=== PATIENT | male | born 1955 | race Caucasian/White ===

== ENCOUNTER 2023-04-08 14:14 | Observation (INO) | payer MEDICARE, SELFPAY ==
--- NOTE | ~2023-04-08 | CT_ITS ---
EXAMINATION: CT hip RT wo con DATE: 04/08/2023 20:05 INDICATION: Right hip pain TECHNIQUE: Computed tomography (CT) of the right hip was performed without intravenous contrast. The dose-length product (DLP) was 201.02 mGy-cm. Automated exposure control and iterative reconstruction technique were employed. COMPARISON: None FINDINGS: Bone alignment is normal. There is no fracture. 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 Ur inary bladder is moderately distended. There are calcifications of the prostate. There is atrophy of the gluteus minimus muscle IMPRESSION: 1. No CT correlate for the patient's symptoms. 2. Atrophy of the gluteus minimus muscle. Reviewed, dictated and finalized at location F.
--- NOTE | ~2023-04-08 | XR_ITS ---
XR lumbar spine 2-3V DATE: 04/08/2023 15:32 INDICATION: Back pain for one week. No injury. TECHNIQUE: AP, lateral, coned lateral lumbosacral views COMPARISON: None FINDINGS: No fracture or bone destruction or spondylolisthesis is evident. There is severe degenerative disc disease at L5-S1 and mild degenerative disc disease at the remainin g lumbar interspaces. The sacroiliac joints are intact. IMPRESSION: Multilevel degenerative disc disease, severe at L5-S1 Reviewed, dictated and finalized at location []
--- NOTE | ~2023-04-08 | XR_ITS ---
XR hip RT 2V w AP pelvis DATE: 04/08/2023 15:33 INDICATION: Right hip pain for one week TECHNIQUE: AP pelvis. AP and lateral views of the right hip COMPARISON: None FINDINGS: No pelvic fracture or bone destruction. The pubic symphysis and sacroiliac joints are intac t. No fracture, dislocation, avascular necrosis or bone destruction of the right hip is detected. IMPRESSION: No significant abnormality of the pelvis or right hip Reviewed, dictated and finalized at location []
[2023-04-08 14:17] VITALS: BP 136/74; PULSE 62; RESP 18; TEMP 36.9; O2SAT 100
--- NOTE | 2023-04-08 15:19 | ED.LOWEXIN ---
HPI - Extremity Injury (Lower) General Chief Complaint: Extremity Injury, Lower Stated Complaint: R hip pain Time Seen by Provider: 04/08/23 14:23 Source: patient, family and EMS Mode of arrival: EMS Limitations: no limitations History of Present Illness HPI Narrative: PATIENT IS 67 YEARS OLD WHITE MALE PRESENTS TO THE ED WITH SEVERE PAIN AT THE RIGHT HIP LATERALLY STARTED 1 WEEK AGO AND GRADUALLY GETTING WORSE. TODAY WAS NOT ABLE TO STAND UP AND CALL 911. HISTORY OF [facility] MUSCULAR DYSTROPHY, PATIENT IS TELLING ME THAT HE HAD 1 WEEK VACATION WITH A LOT OF WALKING AND STANDING. HE DENIES ANY FEVER, CHILLS, NAUSEA, VOMITING, TRAUMA. Related Data Allergies Allergy/AdvReac Type Severity Reaction Status Date / Time No Known Allergies Allergy Verified 04/08/23 14:21 Review of Systems Review of Systems: All systems reviewed & are unremarkable except as noted in HPI and below Exam Narrative: GENERAL APPEARANCE: WELL-DEVELOPED, WELL-NOURISHED SKIN: NORMAL COLOR HEAD: NORMOCEPHALIC, NONTRAUMATIC EYES: CLEAR CONJUNCTIVA ENT: OROPHARYNX NORMAL, EARS NORMAL, NOSE NORMAL NECK: SUPPLE, NONTENDER CHEST AND RESPIRATORY: AIRWAY PATENT, NO RESPIRATORY DISTRESS, NO ACCESSORY MUSCLE USE HEART: REGULAR RATE/RHYTHM ABDOMEN: SOFT, NONTENDER, NO ORGANOMEGALY, QUIET BOWEL SOUNDS VASCULAR: NORMAL PERIPHERAL PULSES, NORMAL CAPILLARY REFILL. MUSCULOSKELETAL: SLIGHT LIMITED RANGE OF MOTION OF THE RIGHT HIP, SLIGHT TENDERNESS LATERALLY, NO BRUISES, NO SWELLING, NO RASHES, NO WARMTH, NO DEFORMITY. NO GROIN LYMPHADENOPATHY OR MASS NEUROLOGIC: ALERT AND ORIENTED ?3, ZINC PLATER IS NORMAL TESTED, NO GROSS MOTOR DEFICIT Course Reevaluation(s) Reevaluation #1: Patient received 25 mg of Dilaudid IV, 4 mg of Zofran IV and 30 mg of Toradol IV with significant improvement. At the time of discharge patient stated at the side of bed and was not able to walk because of pain. Patient reports that he cannot go home like this and would like to stay overnight for pain management. Date: 04/08/23 Time: 19:55 Consultations Consultation #1: Dr. Gregg Admit to hospitalist Date: 04/08/23 Time: 19:57 Vital Signs Vital signs: Vital Signs Temperature 36.9 C 04/08/23 14:17 Pulse Rate 62 04/08/23 14:17 Respiratory Rate 18 04/08/23 14:17 Blood Pressure 136/74 04/08/23 14:17 Pulse Oximetry 100 04/08/23 14:17 Oxygen Delivery Room Air 04/08/23 14:17 Temperature 36.9 C 04/08/23 14:17 Pulse Rate 62 04/08/23 14:17 Respiratory Rate 18 04/08/23 14:17 Blood Pressure 136/74 04/08/23 14:17 Pulse Oximetry 100 04/08/23 14:17 Oxygen Delivery Room Air 04/08/23 14:17 MDM - Extremity Injury (Lower) MDM Narrative Medical decision making narrative: Patient have history of facioscapulohumeral muscular dystrophy. Went to vacation was quite a bit of walking and standing, been hurting at the right hip for the last few days it got worse today today was not able to get up and stand without hotel assistant general manager. He denies any fever or trauma. Physical examination was remarkable for inability to stand up and put weight on the right lower extremity because of the right hip pain laterally. No bruises, no swelling, no rash. Differential diagnosis include musculoskeletal pain, strain, sprain, occult fracture. X-ray of the right hip and pelvis showed no significant abnormalities x-ray of the lumbar spine showed degenerative disc disease severe at L5-S1 Blood work-up showed normal CBC, normal CMP. Patient received 0.5 mg of Dilaudid IV, 4 mg of Zofran IV, 30 mg of Toradol IV with quite a bit of improvement but was not able to stand up at the time of discharge because of the pain.
[2023-04-08] MEDS: HYDROmorphone HCL INJ (*CRX) 1 MG/ML SYR 0.5 MG IV PUSH (15:54)
[2023-04-08] MEDS: ONDANSETRON INJ 4 MG/2 ML VIAL IV PUSH (15:55)
[2023-04-08 16:04] LABS: Basophils Absolute Auto 0.1 K/mm3 (0.0-0.1); Basophils Percent Auto 0.8 % (0.2-1.2); Eosinophils Absolute Auto 0.1 K/mm3 (0-0.3); Eosinophils Percent Auto 0.8 % (0-4.4); Hematocrit 45.6 % (42.0-52.0); Hemoglobin 15.2 g/dL (14.0-18.0); Immature Granulocyte Absolute 0.05 K/mm3 (0.00-0.031); Immature Granulocyte Percent A 0.6 % (0-0.5); Lymphocytes Absolute Auto 1.72 K/mm3 (0.9-3.2); Mean Corpuscular HGB Conc 33.3 g/dl (32-36); Mean Corpuscular Hemoglobin 31.9 pg (26-34); Mean Corpuscular Volume 95.6 fl (80-100); Monocytes Percent Auto 11.9 % (2.6-8.5); Neutrophils Absolute Auto 5.7 K/mm3 (1.3-6.7); Neutrophils Percent Auto 65.9 % (45.5-73.1); Platelet Count Result 199 k/mm3 (150-375); Red Blood Count 4.77 M/mm3 (4.6-6.20); Red Cell Distribution Width 13.2 % (11.5-14.5); White Blood Count 8.6 K/mm3 (4.5-10.0)
[2023-04-08 16:18] LABS: Alanine Aminotransferase 31 U/L (6-50); Albumin Level 4.3 g/dL (3.5-5.1); Alkaline Phosphatase 54 U/L (38-126); Anion Gap 8 mmol/L (8-16); Aspartate Amino Transferase 43 U/L (17-59); Bilirubin,Total 1.1 mg/dL (0.2-1.3); Blood Urea Nitrogen 18 mg/dL (9-20); Calcium 9.1 mg/dL (8.4-10.2); Carbon Dioxide 27 mmol/L (22-30); Chloride 100 mmol/L (98-107); Estimated CRCL calculation 122 ml/min; Estimated Glomerular Filt Rate > 60; Glucose 93 mg/dL (65-110); Potassium 3.6 mmol/L (3.4-5.0); Sodium 135 mmol/L (137-145)
[2023-04-08] MEDS: KETOROLAC 30 MG/ML VIAL (*BKC) IV PUSH (16:19)
[2023-04-08 22:13] VITALS: BP 131/68; PULSE 82; RESP 18; O2SAT 99
[2023-04-08 22:47] VITALS: BMI 22.2
[2023-04-08 22:48] VITALS: BP 122/72; PULSE 75; RESP 20; TEMP 36.4; O2SAT 93
[2023-04-09] MEDS: HYDROcodone/acetaminophen (*CRX) 5-325 MG TABLET 1 TAB PO ×3 (04:32→13:35)
[2023-04-09] MEDS: LEVOTHYROXINE SODIUM 88 MCG TABLET PO (05:52)
[2023-04-09 06:00] VITALS: BP 110/65; PULSE 55; RESP 20; TEMP 36.4; O2SAT 98
--- NOTE | 2023-04-09 08:15 | PCPTNOTE ---
Patient has ortho consult physical therapy sill see patient sometime after ortho consult.
[2023-04-09] MEDS: hydroCHLOROthiazide 12.5 MG CAPSULE PO (08:23)
[2023-04-09 10:07] VITALS: O2SAT 98
--- NOTE | 2023-04-09 10:30 | PM.SD2 ---
Same Day Admit/Disch: HPI History of Present Illness Chief complaint: right hip pain, trochanteric bursitis, muscular dy Narrative: Christiano Slaughter is a 67 year old male [facility] Social History Social History Smoking status: Former smoker Tobacco type: cigars Second hand tobacco smoke exposure: No Alcohol intake: current Drinks per week: 12 Substance use: never Lack of Transportation: No Lack of Food: Never True Current Housing: I Have Housing Concerned About Future Housing: No Difficulty Paying Gas/Electric Bills: No Difficulty Paying for Meds: No Currently Unemployed: No Education: Bachelor's Degree Difficulty w/ Childcare or Family Care: No Spiritual care concerns: No Same Day Admit/Disch: Med Pre-admit Medications Home Medications Medication Instructions Recorded Confirmed Type atorvastatin 20 mg tablet 20 mg PO HS 04/08/23 04/08/23 History candesartan 16 mg tablet 16 mg PO HS 04/08/23 04/08/23 History hydrochlorothiazide 12.5 mg tablet 12.5 mg PO DAILY 04/08/23 04/08/23 History levothyroxine 88 mcg tablet 88 mcg PO DAILY 04/08/23 04/08/23 History Exam Narrative: GENERAL APPEARANCE: WELL-DEVELOPED, WELL-NOURISHED SKIN: NORMAL COLOR HEAD: NORMOCEPHALIC, NONTRAUMATIC EYES: CLEAR CONJUNCTIVA ENT: OROPHARYNX NORMAL, EARS NORMAL, NOSE NORMAL NECK: SUPPLE, NONTENDER CHEST AND RESPIRATORY: AIRWAY PATENT, NO RESPIRATORY DISTRESS, NO ACCESSORY MUSCLE USE HEART: REGULAR RATE/RHYTHM ABDOMEN: SOFT, NONTENDER, NO ORGANOMEGALY, QUIET BOWEL SOUNDS VASCULAR: NORMAL PERIPHERAL PULSES, NORMAL CAPILLARY REFILL. MUSCULOSKELETAL: SLIGHT LIMITED RANGE OF MOTION OF THE RIGHT HIP, SLIGHT TENDERNESS LATERALLY, NO BRUISES, NO SWELLING, NO RASHES, NO WARMTH, NO DEFORMITY. NO GROIN LYMPHADENOPATHY OR MASS NEUROLOGIC: ALERT AND ORIENTED ?3, COMMUNITY NURSE IS NORMAL TESTED, NO GROSS MOTOR DEFICIT DS: Data Data Completed and Pending Labs on day of discharge: Labs from last 24 hours 04/08/23 15:58 WBC 8.6 RBC 4.77 Hgb 15.2 Hct 45.6 MCV 95.6 MCH 31.9 MCHC 33.3 RDW 13.2 Plt Count 199 MPV 9.0 Immature Gran % (Auto) 0.6 H Neut % (Auto) 65.9 Lymph % (Auto) 20.0 [place] % (Auto) 11.9 H Eos % (Auto) 0.8 Baso % (Auto) 0.8 Lymph # (Auto) 1.72 [place] # (Auto) 1.0 H Eos # (Auto) 0.1 Baso # (Auto) 0.1 Abs Immat Gran (auto) 0.05 H Absolute Neuts (auto) 5.7 Absolute Nucleated RBC 0.0 Nucleated RBC % 0.0 Sodium 135 L Potassium 3.6 Chloride 100 Carbon Dioxide 27 Anion Gap 8 BUN 18 Creatinine 0.50 L Estim Creat Clear Calc 122 Estimated GFR > 60 Glucose 93 Calcium 9.1 Total Bilirubin 1.1 AST 43 ALT 31 Alkaline Phosphatase 54 Total Protein 7.0 Albumin 4.3 DS: Summary Hospital Course Hospital Course: Patient have history of facioscapulohumeral muscular dystrophy.? Went to vacation was quite a bit of walking and standing, been hurting at the right hip for the last few days it got worse today today was not able to get up and stand without addictions counselor assistant.? He denies any fever or trauma.? Physical examination was remarkable for inability to stand up and put weight on the right lower extremity because of the right hip pain laterally.? No bruises, no swelling, no rash.? Differential diagnosis include musculoskeletal pain, strain, sprain, occult fracture. X-ray of the right hip and pelvis showed no significant abnormalities x-ray of the lumbar spine showed degenerative disc disease severe at L5-S1 Blood work-up showed normal CBC, normal CMP.? Patient received 0.5 mg of Dilaudid IV, 4 mg of Zofran IV, 30 mg of Toradol IV with quite a bit o
== END 2023-04-09 14:05 | disposition home health service (06) ==
LOC: ANHED 19:57 → ANH3MEDSUR 21:59
PROVIDERS: Admitting Provider Hospitalist; Emergency Provider Emergency Medicine; PCP Family Medicine; Visit Provider Hospitalist
DX: M70.60 Trochanteric bursitis, unspecified hip (principal); G71.02 Facioscapulohumeral muscular dystrophy; M51.37 Other intervertebral disc degeneration, lumbosacral region; Z87.891 Personal history of nicotine dependence; F10.90 Alcohol use, unspecified, uncomplicated
CPT/HCPCS: 36415; 72100; 73502; 73700; 80053; 85025; 96374; 96375; 97161; 99285; A9270; G0378; J1170; J1885; J2405

== ENCOUNTER 2023-06-17 10:45 | Outpatient (CLI) | payer MEDICARE, OTHER, SELFPAY ==
[2023-06-17 18:33] LABS: Alanine Aminotransferase 34 U/L (6-50); Albumin Level 4.3 g/dL (3.5-5.1); Alkaline Phosphatase 53 U/L (38-126); Anion Gap 5 mmol/L (8-16); Aspartate Amino Transferase 50 U/L (17-59); Bilirubin,Total 0.9 mg/dL (0.2-1.3); Blood Urea Nitrogen 20 mg/dL (9-20); Calcium 9.3 mg/dL (8.4-10.2); Carbon Dioxide 35 mmol/L (22-30); Chloride 96 mmol/L (98-107); Cholesterol 181 mg/dL (0-200); Estimated Glomerular Filt Rate > 60; Glucose 80 mg/dL (65-110); HDL Direct 78 mg/dL; Potassium 4.5 mmol/L (3.4-5.0); Sodium 136 mmol/L (137-145); Triglycerides 111 mg/dL (<150)
[2023-06-17 18:44] LABS: Free T4 Free Thyroxine 1.26 ng/mL (0.78-2.19); LDL Cholesterol Direct 86 mg/dL
[2023-06-17 18:59] LABS: Prostate Specific Antigen 2.5 ng/mL (< OR = 4.0)
[2023-06-22 05:24] LABS: Triiodothyronine T3 Free 2.6 pg/mL (2.3-4.2)
== END 2023-06-17 10:46 | disposition home or self-care (01) ==
PROVIDERS: PCP Internal Medicine; Visit Provider Nurse Practitioner
DX: E03.9 Hypothyroidism, unspecified (principal); E78.5 Hyperlipidemia, unspecified; I10 Essential (primary) hypertension; Z12.5 Encounter for screening for malignant neoplasm of prostate
CPT/HCPCS: 36415; 80053; 80061; 84153; 84439; 84443; 84481; G0103

== ENCOUNTER 2023-08-30 10:00 | Outpatient (RCR) | payer MEDICARE, SELFPAY ==
--- NOTE | 2023-06-06 17:02 | PTOPEVAL1 ---
Assessment and note entered by Gale Willams, PT, DPT Evaluation Information Assessment Status Evaluation Diagnosis R hip pain Onset 2 months Subjective Information Pt states he went on a week long vacation with a lot of walking, he states this pain started as a soreness and progressed a debilitating pain within a few days. He ended up going to the ER, then outpatient rehab after discharge, and them home health. He is seeing an orthopedic surgeon this tuesday. He has numbness on the lateral R thigh, and medial R calf. He has had one fall in the last month. He did not use a walker prior to this. Reported Pain Level Pain Score 2: Self Report Assessment PT Clinical Summary Christiano presents to therapy today for his initial evaluation with a diagnosis of low back and hip pain as well as a medical diagnosis of muscular dystrophy. Today he demonstrates hip and core weakness, decreased ROM in his hip junior, hamstring, and paraspinals, he stands with postural abnormalities and now has to ambulate with an AD d /t pain. Skilled therapy services are indicated to manage pain, improve strength and ROM, improve stability, and to return to PLOF. Plan of Care Interventions Electrical Stimulation,Gait Training,Hot Pack/Cold Pack,Manual Therapy,Mechanical Traction,Neuro Re- education,Patient/Caregiver Educati,Therapeutic Activities,Therapeutic Exercise PT Services Indicated Yes Treatment Frequency and 2x/wk for 4 wks Duration These treatments will address the objective and functional deficits as defined above. The patient will be advanced safely and appropriately in order for the patient to progress towards his/her prior level of function. Additional exercises will be introduced and as well as a comprehensive home exercise program upon discharge, if needed, ?to ensure carryover of functional gains achieved in the clinic. This treatment plan has been reviewed and agreement upon by the patient.
--- NOTE | 2023-06-06 17:03 | OPREHPOC ---
Outpatient Therapy Plan of Care This is a Multidisciplinary Plan of Care that may contain components documented by all disciplines (PT, OT, and ST.) PT Problem 1 PT Problem #1 Knowledge Deficit PT Goal 1 Goal Pt to be IND with issued HEP Target Visit 8 PT Problem 2 PT Problem #2 Pain PT Goal 1 Goal Pt to report low back pain no greater than 3/10 in the last week Target Visit 8 PT Goal 2 Goal Pt to report 75% improvement in overall symptoms Target Visit 8 PT Problem 3 PT Problem #3 Impaired Range of Motion PT Goal 1 Goal Pt to improve active lumbar ROM to pain free ROM Target Visit 8 PT Goal 2 Goal Pt to improve junior hamstring length to -45 deg Target Visit 8 PT Problem 4 PT Problem #4 Impaired Strength PT Goal 1 Goal Pt to improve junior hip abduction strength to 3+/5 Target Visit 8 PT Goal 2 Goal Pt to demonstrate a 5xSTS in less than 20s without UE support Target Visit 8 PT Problem 5 PT Problem #5 Impaired Safety Awareness PT Goal 1 Goal Pt to report no falls in the last month. Target Visit 8
--- NOTE | 2023-07-05 10:05 | PTOPPROG ---
Assessment and note entered by Gale Willams, PT, DPT Evaluation Information Assessment Status Progress Diagnosis R hip pain Onset 2 months Subjective Information Pt states he is getting an addition steroid injection tomorrow and sees the neurosurgeon in 2- 3 weeks. Pt states going up and down the stairs has improved and he is now able to sleep up stairs again. He is using a walking stick today and has been able to walk a little bit at home without a device. He reports he still has numbness in her lower leg, he does not feel this has improved much . Assessment PT Clinical Summary Christiano presents to therapy today for his progress report following 8 visits of skilled therapy to treat his diagnosis of low back and hip pain as well as a medical diagnosis of muscular dystrophy. Today he demonstrates improve lumbar ROM in all directions and reports decreased pain. His hip strength has progressed but still is limited, specifically in abduction. His scores on the Tinetti and 5xSTS place him at an increased risk for falls. Continuation of skilled therapy services are indicated to progress towards goals, to improve function, and to minimize fall risk. Plan of Care Interventions Electrical Stimulation,Gait Training,Hot Pack/Cold Pack,Manual Therapy,Mechanical Traction,Neuro Re- education,Patient/Caregiver Educati,Therapeutic Activities,Therapeutic Exercise PT Services Indicated Yes Treatment Frequency and 2x/wk for 8 visits Duration These treatments will address the objective and functional deficits as defined above. The patient will be advanced safely and appropriately in order for the patient to progress towards his/her prior level of function. Additional exercises will be introduced and as well as a comprehensive home exercise program upon discharge, if needed, ?to ensure carryover of functional gains achieved in the clinic. This treatment plan has been reviewed and agreement upon by the patient.
--- NOTE | 2023-08-02 17:18 | PTOPPROG ---
Assessment and note entered by Gale Willams, PT, DPT Evaluation Information Assessment Status Progress Diagnosis R hip pain Onset 2 months Subjective Information Pt states overall he feels like he is still having balance and strength deficits compared to this baseline. He reports his back pain does not really affect him anymore, he continues to have some numbness in his L leg but this has improved with his last injection. He states his shoulder is now his primary concern. Assessment PT Clinical Summary Christiano presents to therapy today for his progress report following 16 visits of skilled therapy to treat his diagnosis of low back and hip pain as well as a medical diagnosis of muscular dystrophy. His back and hip pain are progressing well. His scores on the Tinetti and 5xSTS have increased but still place him at an increased risk for falls. Today he was also evaluation with a new order for R shoulder pain. He demonstrates decreased active shoulder motion, decreased strength, and significantly decreased scapular stability with active shoulder motions. Continuation of skilled therapy services are indicated to progress towards goals, to improve function, to manage shoulder pain, and to minimize fall risk. Plan of Care Interventions Electrical Stimulation,Gait Training,Hot Pack/Cold Pack,Manual Therapy,Mechanical Traction,Neuro Re- education,Patient/Caregiver Educati,Therapeutic Activities,Therapeutic Exercise PT Services Indicated Yes Treatment Frequency and 2x/wk for 8 visits Duration These treatments will address the objective and functional deficits as defined above. The patient will be advanced safely and appropriately in order for the patient to progress towards his/her prior level of function. Additional exercises will be introduced and as well as a comprehensive home exercise program upon discharge, if needed, ?to ensure carryover of functional gains achieved in the clinic. This treatment plan has been reviewed and agreement upon by the patient.
--- NOTE | 2023-08-30 14:01 | PTOPDC ---
Assessment and note entered by Gale Willams, PT, DPT Evaluation Information Assessment Status Discharge Diagnosis R hip pain Onset 2 months Subjective Information Pt states overall he is feeling more confident with his balance and strength, but his stamina is still improving. He uses the walking stick when out in the community but not when hes at home. He states he is sleeping better. His R arm is still numb and he is worried he is going to loose function in that arm. Reported Pain Level Pain Score 3,2: Self Report Assessment PT Clinical Summary Christiano presents to therapy today for his progress report following 22 visits of skilled therapy to treat his diagnosis of low back and hip pain as well as a medical diagnosis of muscular dystrophy. His back and hip pain are continuing to improve and he reports 80% improvement in overall symptoms. He reports as well as demonstrates no functional improvements in his shoulder motion, strength, or pain reports in the last month. Secondary to lack of therapy progress, he will be discharged at this time. His HEP was progressed and he was education to continue with these exercises upon discharge. Plan of Care PT Services Indicated No
== END 2023-08-30 15:27 | disposition home or self-care (01) ==
LOC: ANHGOSHPT 10:00
PROVIDERS: PCP Internal Medicine; Visit Provider Clinical Nurse Specialist
DX: G71.00 Muscular dystrophy, unspecified (principal); M25.551 Pain in right hip; M54.9 Dorsalgia, unspecified; M25.512 Pain in left shoulder; W19.XXXA Unspecified fall, initial encounter
CPT/HCPCS: 97012; 97110; 97112; 97140; 97161; 97164; 97530; 97750

== ENCOUNTER 2023-09-05 09:48 | Outpatient (CLI) | payer MEDICARE, OTHER, SELFPAY ==
--- NOTE | 2023-09-27 14:13 | WPDSLEEPSTUD ---
Sleep Study Date of Study: 09/05/23 <Fani Alexander DO - Last Filed: 10/04/23 18:06> Ordering Provider: David DuboisMD <Fani Alexander DO - Last Filed: 10/04/23 18:06> Interpreting Physician: Fani Alexander DO <Fani Alexander DO - Last Filed: 10/04/23 18:06> Sleep Study Type: Split Polysomnogram <Fani Alexander DO - Last Filed: 10/04/23 18:06> Height: 1.83 m <Fani Alexander DO - Last Filed: 10/04/23 18:06> Weight: 72.575 kg <Fani Alexander DO - Last Filed: 10/04/23 18:06> Body Mass Index: 21.7 <Fani Alexander DO - Last Filed: 10/04/23 18:06> 21.7 <Amy Chavarria MD - Last Filed: 10/06/23 17:37> Neck Circumference (inches): 15.5 <Fani Alexander DO - Last Filed: 10/04/23 18:06> Bradley: 2 <Fani Alexander DO - Last Filed: 10/04/23 18:06> Reason for Sleep Study Snoring <Fani Alexander DO - Last Filed: 10/04/23 18:06> Sleep History The patient is a 68-year-old male with facioscapulohumeral muscular dystrophy, neuromuscular respiratory weakness, hypertension, hyperlipidemia and hypothyroidism that had a sleep study ordered by his melt helper for evaluation of sleep. The patient occasionally awakens from sleep short of breath. He denies awakening at night with heartburn, belching or cough. He occasionally snores and is occasionally loud enough others complain. He rarely has trouble sleeping when he has a cold. He occasionally wakes up gasping for air throughout the night. He denies having breathing problems at night observed by himself or others. He denies sweating excessively at night. He denies having heart palpitations or irregular heartbeats during the night he rarely falls asleep during the day and never falls asleep while driving. He denies sleep paralysis, cataplexy and hypnagogic / hypnopompic hallucinations. He denies having trouble at school or work due to sleepiness. He denies feeling afraid of going to sleep. He denies having nightmares. He occasionally remembers his dreams. He denies having thoughts racing through his mind. He rarely feels sad, depressed or anxious. He occasionally has muscular tension. He rarely notices parts of his body jerk. He denies kicking during the night. He denies having crawling and aching feelings in his legs but rarely has leg pain during the night. He denies grinding his teeth during sleep and denies awakening with morning jaw pain. He is occasionally bothered by pain during the day but rarely awakened by pain during night. He occasionally wakes up feeling stiff in morning. He occasionally wakes up with sore or achy muscles. He occasionally wakes up with pain in the neck, spine or other joints. He goes to bed between 10-11 p.m. on both weekdays and weekends. It takes him 10-20 minutes to fall asleep. He wakes up 3 times throughout the night to change position and is able to fall back asleep within 10 minutes. He wakes up at 7:00 a.m. on both weekdays and weekends. He typically gets 8-9 hours of sleep per night. He will stay in bed for 30 minutes after waking up in the morning he currently lives with his . He denies consuming any caffeinated beverages within 2 hours of bedtime. He denies engaging in physical exercise before bedtime. He will read and watch television before falling asleep. He denies taking naps in afternoon. He denies consuming caffeinated beverages throughout the day. He consumes 2 alcoholic beverages per day. He denies tobacco and recreational drug use. <Fani Alexander DO - Last Filed: 10/04/23 18:06> [facility] Past Medical History Medical History: Medical History Alcohol abuse Hyperlipidemia Hypertension Hypothyroid <Fani Alexander DO - Last Filed: 10/04/23 18:06> Social History Social History: Social History (Reviewed 10/04/23 @
[2023-10-06 17:37] VITALS: BMI 21.7
== END 2023-09-06 07:20 | disposition home or self-care (01) ==
LOC: ANHCSM 09:50
PROVIDERS: PCP Internal Medicine; Visit Provider Student in an Organized Health Care Education/Training Program
DX: R06.83 Snoring (principal); G47.33 Obstructive sleep apnea (adult) (pediatric)
CPT/HCPCS: 95811

== ENCOUNTER 2024-01-02 11:14 | Outpatient (CLI) | payer MEDICARE, SELFPAY ==
[2024-01-02 20:54] LABS: Anion Gap 2 mmol/L (8-16); Blood Urea Nitrogen 16 mg/dL (9-20); Calcium 9.4 mg/dL (8.4-10.2); Carbon Dioxide 33 mmol/L (22-30); Chloride 99 mmol/L (98-107); Estimated Glomerular Filt Rate > 60; Glucose 89 mg/dL (65-110); Potassium 3.9 mmol/L (3.4-5.0); Sodium 134 mmol/L (137-145)
== END 2024-01-02 11:15 | disposition home or self-care (01) ==
LOC: ANHGOSHLAB 11:16
PROVIDERS: PCP Internal Medicine; Visit Provider Clinical Nurse Specialist
DX: E03.9 Hypothyroidism, unspecified (principal); I10 Essential (primary) hypertension
CPT/HCPCS: 36415; 80048; 84443

== ENCOUNTER 2024-01-04 10:42 | Outpatient (CLI) | payer MEDICARE, SELFPAY ==
--- NOTE | 2024-01-20 23:34 | WPDSLEEPSTUD ---
Sleep Study Date of Study: 01/04/24 Ordering Provider: David Henson, Interpreting Physician: Amy Chavarria MD Sleep Study Type: BiPAP Titration Height: 1.83 m Weight: 72.575 kg Body Mass Index: 21.7 Neck Circumference (inches): 15.5 Chamberlain: 2 Reason for Sleep Study 09/05/2023; split night study with mild MINH, AHI of 7.8, desaturation down to 88%. This is consistent with?mild sleep apnea.?Due to the patient's muscular dystrophy, he qualifies for PAP Therapy.?The patient was started on CPAP 5 cm H2O and titrated to CPAP 12 cm H2O with EPR of 1. With increasing pressures, the patient's sleep architecture became more fragmented. When the patient went into the supine position, he developed a significant number of obstructive/mixed apneas and hypopneas. Typically with patients affected by muscular dystrophy, BPAP therapy is predominantly used to aid in ventilation. The patient did not tolerate any of the CPAP pressures very well.?I recommend that the patient come back to the sleep lab for a BPAP Titration study with transcutaneous CO2 monitoring to ensure that he is ventilating properly.?The patient will likely need to be on BPAP therapy with a back-up rate. The patient had difficulty falling asleep and staying asleep throughout the sleep study.?I recommend that the patient be given a hypnotic (Lunesta 2 mg or Ambien 5 mg) to ensure we obtain enough sleep data and find an optimal pressure. The patient had a significant number of limb movements during the study with the majority being periodic in nature. The patient's sleep history does not suggest Restless Leg Syndrome.? The frequency of periodic limb movements did increase during the PAP Titration portion of the study, which is common. About 5% of the periodic limb movements in the diagnostic portion of the study caused arousals from sleep and about 20% in the PAP titration portion of the study. I recommend asking the patient about leg movements during his first PAP compliance visit Sleep History Christiano Slaughter is a 68-year-old man with facioscapulohumeral muscular dystrophy, neuromuscular respiratory weakness, hypertension, hyperlipidemia and hypothyroidism who has mild obstructive sleep apnea, and his split night study was a partial titration. The patient occasionally awakens from sleep short of breath.? He denies awakening at night with heartburn, belching or coughing.? He occasionally snores and is occasionally loud enough others complain.? He rarely has trouble sleeping when he has a cold.? He occasionally wakes up gasping for air throughout the night.? He denies having breathing problems at night observed by himself or others.? He denies sweating excessively at night.? He denies having heart palpitations or irregular heartbeats during the night he rarely falls asleep during the day and never falls asleep while driving.? He denies feeling paralyzed on waking or falling asleep, denies loss of muscle tone with strong emotion, and denies vivid dreamlike scenes on waking or falling asleep. He denies having trouble at school or work due to sleepiness.? He denies feeling afraid of going to sleep.? He denies having nightmares.? He occasionally remembers his dreams.? He does not have thoughts racing through his mind.? He rarely feels sad, depressed or anxious.? He occasionally has muscular tension. He rarely notices parts of his body jerk. He denies kicking during the night. He denies having crawling and aching feelings in his legs but rarely has leg pain during the night.? He denies grinding his teeth during sleep and denies awakening with morning jaw pain.? He is occasionally bothered by pain during the day but rarely awakened by pain during night.? He occasionally wakes up feeling stiff in morning.? He occasionally wakes up with sore or achy muscles.? He occasionally wakes up with pain in the neck, spine or other joints.? Normal bedtime is between 10-11 p.m., falling asleep within 10-20 minutes to fall asleep.?
[2024-01-27 12:39] VITALS: BMI 21.7
== END 2024-01-05 07:49 | disposition home or self-care (01) ==
PROVIDERS: PCP Internal Medicine; Visit Provider Student in an Organized Health Care Education/Training Program
DX: G47.33 Obstructive sleep apnea (adult) (pediatric) (principal); R06.83 Snoring
CPT/HCPCS: 95811

== ENCOUNTER 2024-01-11 13:28 | Outpatient (CLI) | payer MEDICARE, SELFPAY ==
--- NOTE | 2024-01-11 14:00 | NEURO_ITS ---
Impression: # Non-diabetic complains of right upper extremity pain. # No Carpal Tunnel Syndrome or ulnar neuropathy. # Abnormal Needle/EMG exam in Triceps. # Extremely poor pain tolerance; Possiblity of higher involvement cannot be ruled out because of the pain intolerance and limited exam Only right side done per patient request. Nerve Conduction Studies Anti Sensory Summary Table Stim Site NR Peak (ms) P-T Amp (?V) Site1 Site2 Delta-P (ms) Dist (cm) Rommel (m/s) Right Median Anti Sensory (2-3nd Digit) Wrist 3.2 57.7 Wrist 2-3nd Digit 3.2 14.0 44 Wrist 3.1 74.5 Wrist 2-3nd Digit 3.2 14.0 44 Right Radial Anti Sensory (Base 1st Digit) Wrist 2.5 19.8 Wrist Base 1st Digit 2.5 0.0 Right Ulnar Anti Sensory (5th Digit) Wrist 3.0 61.5 Wrist 5th Digit 3.0 14.0 47 Motor Summary Table Stim Site NR Onset (ms) O-P Amp (mV) Site1 Site2 Delta-0 (ms) Dist (cm) Rommel (m/s) Right Median Motor (Abd Poll Brev) Wrist 3.4 3.6 Elbow Wrist 7.7 33.0 43 Elbow 11.1 1.9 Right Ulnar Motor (Abd Dig Minimi) Wrist 3.6 1.9 A Elbow Wrist 5.9 32.0 54 A Elbow 9.5 1.3 F Wave Studies NR F-Lat (ms) L-R F-Lat (ms) Right Median (Mrkrs) (Abd Poll Brev) 29.24 Right Ulnar (Mrkrs) (Abd Dig Min) 28.83 EMG Side Muscle Nerve Root Ins Act Fibs Amp Dur Recrt Comment Right 1stDorInt Ulnar C8-T1 Nml Nml Nml Nml +1 Right Ext Indicis Radial (Post Int) C7-8 Nml Nml Nml Nml Nml Right Ext Digitorum Radial (Post Int) C7-8 Incr Nml Nml Nml +1 Right BrachioRad Radial C5-6 Nml Nml Nml Nml Nml Right PronatorTeres Median C6-7 Incr Nml Nml Nml +1 Right Abd Poll Brev Median C8-T1 Nml Nml Nml Nml Nml Right ABD Dig Min Ulnar C8-T1 Nml Nml Nml Nml Nml Right Triceps Radial C6-7-8 Incr Nml Nml Nml +2 MTDD
== END 2024-01-11 13:29 | disposition home or self-care (01) ==
PROVIDERS: PCP Internal Medicine; Visit Provider Nurse Practitioner Family
DX: M54.10 Radiculopathy, site unspecified (principal)
CPT/HCPCS: 95886; 95909

== ENCOUNTER 2024-08-13 10:58 | Outpatient (CLI) | payer MEDICARE, OTHER, SELFPAY ==
[2024-08-13 14:41] LABS: Basophils Absolute Auto 0.1 K/mm3 (0.0-0.1); Basophils Percent Auto 1.1 % (0.2-1.2); Eosinophils Absolute Auto 0.2 K/mm3 (0-0.3); Eosinophils Percent Auto 2.5 % (0-4.4); Hematocrit 44.8 % (42.0-52.0); Hemoglobin 15.2 g/dL (14.0-18.0); Immature Granulocyte Absolute 0.03 K/mm3 (0.00-0.031); Immature Granulocyte Percent A 0.5 % (0-0.5); Lymphocytes Absolute Auto 1.72 K/mm3 (0.9-3.2); Lymphocytes Percent Auto 26.6 % (18.3-44.2); Mean Corpuscular HGB Conc 33.9 g/dl (32-36); Mean Corpuscular Hemoglobin 35.2 pg (26-34); Mean Corpuscular Volume 103.7 fl (80-100); Mean Platelet Volume 9.7 fl (7.4-10.4); Monocytes Absolute Auto 0.8 K/mm3 (0.1-0.6); Monocytes Percent Auto 11.6 % (2.6-8.5); Neutrophils Absolute Auto 3.7 K/mm3 (1.3-6.7); Neutrophils Percent Auto 57.7 % (45.5-73.1); Platelet Count Result 192 k/mm3 (150-375); Red Blood Count 4.32 M/mm3 (4.6-6.20); Red Cell Distribution Width 14.5 % (11.5-14.5); White Blood Count 6.5 K/mm3 (4.5-10.0)
[2024-08-13 14:48] LABS: Alanine Aminotransferase 32 U/L (6-50); Albumin Level 4.5 g/dL (3.5-5.1); Alkaline Phosphatase 48 U/L (38-126); Anion Gap 8 mmol/L (4-12); Aspartate Amino Transferase 60 U/L (17-59); Bilirubin,Total 0.7 mg/dL (0.2-1.3); Blood Urea Nitrogen 19 mg/dL (9-20); Calcium 9.8 mg/dL (8.4-10.2); Carbon Dioxide 31 mmol/L (22-30); Chloride 97 mmol/L (98-107); Estimated Glomerular Filt Rate > 60; Glucose 84 mg/dL (65-110); Potassium 4.4 mmol/L (3.4-5.0); Sodium 136 mmol/L (137-145)
[2024-08-13 15:09] LABS: Prostate Specific Antigen 2.6 ng/mL (< OR = 4.0)
== END 2024-08-13 10:59 | disposition home or self-care (01) ==
LOC: ANHGOSHLAB 11:00
PROVIDERS: PCP Internal Medicine; Visit Provider Clinical Nurse Specialist
DX: E03.9 Hypothyroidism, unspecified (principal); G71.00 Muscular dystrophy, unspecified; I10 Essential (primary) hypertension; Z12.5 Encounter for screening for malignant neoplasm of prostate; M25.551 Pain in right hip
CPT/HCPCS: 36415; 80053; 84153; 84443; 85025; G0103

== ENCOUNTER 2024-08-20 09:05 | Outpatient (CLI) | payer MEDICARE, SELFPAY | END 2024-08-20 09:06 | disposition home or self-care (01) | LOC: ANHGOSHLAB 09:07 | PROVIDERS: PCP Internal Medicine; Visit Provider Clinical Nurse Specialist | DX: E03.9 Hypothyroidism, unspecified (principal) | CPT/HCPCS: 36415; 84439; 84443 ==

== ENCOUNTER 2024-10-26 09:29 | Outpatient (CLI) | payer MEDICARE, SELFPAY ==
[2024-10-26 12:05] LABS: Alanine Aminotransferase 34 U/L (6-50); Albumin Level 4.4 g/dL (3.5-5.1); Alkaline Phosphatase 60 U/L (38-126); Anion Gap 3 mmol/L (4-12); Aspartate Amino Transferase 69 U/L (17-59); Bilirubin,Total 0.9 mg/dL (0.2-1.3); Blood Urea Nitrogen 20 mg/dL (9-20); Calcium 9.5 mg/dL (8.4-10.2); Carbon Dioxide 28 mmol/L (22-30); Chloride 103 mmol/L (98-107); Cholesterol 172 mg/dL (0-200); Estimated Glomerular Filt Rate > 60; Glucose 99 mg/dL (65-110); HDL Direct 72 mg/dL; Potassium 4.2 mmol/L (3.4-5.0); Sodium 134 mmol/L (137-145); Triglycerides 88 mg/dL (<150)
[2024-10-26 12:16] LABS: LDL Cholesterol Direct 74 mg/dL
[2024-10-26 12:40] LABS: Free T4 Free Thyroxine 1.12 ng/dL (0.78-2.19)
[2024-10-27 06:23] LABS: Triiodothyronine T3 Free 3.2 pg/mL (2.3-4.2)
== END 2024-10-26 09:30 | disposition home or self-care (01) ==
LOC: ANHGOSHLAB 09:30
PROVIDERS: PCP Internal Medicine; Visit Provider Clinical Nurse Specialist
DX: E03.9 Hypothyroidism, unspecified (principal); I10 Essential (primary) hypertension; E78.5 Hyperlipidemia, unspecified
CPT/HCPCS: 36415; 80053; 80061; 84439; 84443; 84481

== ENCOUNTER 2024-11-02 12:15 | Emergency (ER) | payer MEDICARE, OTHER, SELFPAY ==
[2024-11-02 12:30] VITALS: BP 111/72; PULSE 78; RESP 16; TEMP 36.7; O2SAT 99
--- NOTE | 2024-11-02 12:34 | ED_ITS ---
HPI - URI/Sore Throat General Chief Complaint: Upper Respiratory Infection Stated Complaint: sorethroat,congestion Time Seen by Provider: 11/02/24 12:34 Source: patient Mode of arrival: ambulatory Limitations: no limitations History of Present Illness HPI Narrative: 69-year-old male presents with complaint of nasal and sinus congestion for 2-3 days. Afebrile. Reports headache today. Unable to sleep 1st night of symptoms due to congestion but did take Robitussin sinus medication and was able to sleep following evening. No cough, shortness of breath. Concern for bacterial sinusitis. Negative COVID test today. All systems reviewed and negative except as noted above. Related Data Allergies Allergy/AdvReac Type Severity Reaction Status Date / Time No Known Allergies Allergy Verified 11/02/24 12:27 Review of Systems Review of Systems: CONSTITUTIONAL: Denies fever, chills, or sweats. Reports fatigue. EYES: Denies visual changes, redness, or discharge. ENT: Reports rhinorrhea, congestion. Denies sore throat, or otalgia. CARDIOVASCULAR: Denies chest pain, palpitations, or edema. RESPIRATORY: Denies cough or dyspnea. GASTROINTESTINAL: Denies abdominal pain, nausea, vomiting, or diarrhea. GENITOURINARY: Denies dysuria or hematuria. SKIN: Denies rash or itching. MUSCULOSKELETAL: Denies back pain, joint pain, or myalgia. NEUROLOGIC: Denies headache, numbness, or weakness. PSYCHIATRIC: Denies anxiety or depression. All other systems reviewed are negative, except as documented in HPI. [facility] Past Medical History Medical History Alcohol abuse Hyperlipidemia Hypertension Hypothyroid Muscular dystrophy MINH (obstructive sleep apnea) Social History Social History Smoking status: Former smoker Tobacco type: cigars Second hand tobacco smoke exposure: No Alcohol intake: current Drinks per week: 12 Substance use: never Lack of Transportation: No Lack of Food: Never True Current Housing: I Have Housing Concerned About Future Housing: No Difficulty Paying Gas/Electric Bills: No Difficulty Paying for Meds: No Currently Unemployed: No Education: Bachelor's Degree Difficulty w/ Childcare or Family Care: No Spiritual care concerns: No Comments At time of signature, agree with nursing past medical, surgical, social and family history. There is no relevant family history pertinent to the presenting complaint. Exam Narrative: GENERAL: This is a well-nourished, well-developed patient, in no apparent distress. HEAD: normocephalic, atraumatic. EYES: PERRL. Sclera clear/white. Vision is grossly intact. EARS: External ears normal, auditory canals clear and without drainage, TMs normal without perforation. Hearing grossly intact. NOSE: External nose normal with clear nasal drainage, mild erythema, no significant swelling THROAT: Mucous membranes moist, posterior pharynx clear. NECK: Neck supple, non-tender without lymphadenopathy, masses or thyromegaly. CARDIOVASCULAR: Regular rate and rhythm without murmurs, gallops, or rubs. RESPIRATORY: Clear to auscultation. Breath sounds equal bilaterally. No wheezes, rales, or rhonchi. SKIN: warm, Dry, intact with no suspicious lesions or rash, good texture and turgor. NEURO: awake, alert, and oriented to person, place and time. There were no obvious focal neurologic abnormalities. EXTREMITIES: No joint tenderness, effusion, or edema noted. Course Course Level of Care: Express Care Visit Vital Signs Vital signs: Vital Signs Temperature 36.7 C 11/02/24 12:30 Pulse Rate 78 11/02/24 12:30 Respiratory Rate 16 11/02/24 12:30 Blood Pressure 111/72 11/02/24 12:30 Pulse Oximetry 99 11/02/24 12:30 Temperature 36.7 C 11/02/24 12:30 Pulse Rate 78 11/02/24 12:30 Respiratory Rate 16 11/02/24 12:30 Blood Pressure 111/72 11/02/24 12:30 Pulse Oximetry 99 11/02/24 12:30 Reviewed MDM - URI/Sore Throat MDM Narrative Medical decision making narrative: Negative influenza. Patient well-appearing, nontoxic. Recommend he continue [id number] medications to treat viral symptoms. Lungs clear to auscultation. Patient is aware of diagnosis, understands and agrees to treatment plan. Anticipatory guidance given. Patient agrees to follow-up as directed and is aware of reasons to seek care at the emergency department. Portions of this record may have been created with voice recognition software Differential Diagnosis Differential diagnosis: Likely upper respiratory infection, sinusitis, viral infection and influenza Lab Data Labs: Lab Results 11/02/24 Range/Units 13:00 POC Influenza A Ag Negative (Negative) POC Influenza B Ag Negative (Negative) Discharge Plan Discharge Clinical Impression: Acute viral sinusitis Patient Disposition: Home, Self-Care Condition: Stable Instructions: Antibiotic Form, Sinusitis (ED) Additional Instructions: Your influenza test was negative today. Your symptoms are viral and may last 10-14 days. Take medications as prescribed. Continue taking [id number] medication to treat her symptoms such as DayQuil NyQuil cold and Sinus. Drink at least 64 oz of water a day. Place cool mist humidifier in bedroom where you sleep. Follow-up with your primary care physician if symptoms are not improving. Patient Language: Mongolian Prescriptions: New fluticasone propionate [Flonase Allergy Relief] 50 mcg/actuation spray,suspension 1 spray intranasal BID Qty: 16 0RF Rx Instructions: administer into each nostril methylprednisolone [Medrol (Casey)] 4 mg tablets,dose pack See Rx Instructions PO .COMPLEX Qty: 21 0RF Rx Instructions: orally per package directions No Action gabapentin 400 mg capsule 400 mg PO BID Qty: 180 1RF atorvastatin 20 mg tablet 20 mg PO HS Qty: 90 1RF candesartan 16 mg tablet 16 mg PO HS Qty: 90 1RF levothyroxine 88 mcg tablet 88 mcg PO DAILY Qty: 30 3RF hydrochlorothiazide 12.5 mg tablet 12.5 mg PO DAILY Qty: 90 1RF Follow-up/Referrals: Kentrell Harper DO [Primary Care Provider] - Time of Disposition: 13:04
[2024-11-02 13:04] LABS: EDINFLUASCREEN Negative (Negative); EDINFLUBSCREEN Negative (Negative)
== END 2024-11-02 13:09 | disposition home or self-care (01) ==
PROVIDERS: Emergency Provider Nurse Practitioner Family; PCP Internal Medicine
DX: J01.80 Other acute sinusitis (principal); B97.89 Other viral agents as the cause of diseases classified elsewhere; E78.5 Hyperlipidemia, unspecified; I10 Essential (primary) hypertension; E03.9 Hypothyroidism, unspecified; G47.33 Obstructive sleep apnea (adult) (pediatric); F10.10 Alcohol abuse, uncomplicated
CPT/HCPCS: 87804; 99213; G0463

== ENCOUNTER 2025-03-28 09:33 | Outpatient (CLI) | payer MEDICARE, OTHER, SELFPAY ==
--- NOTE | ~2025-03-28 | MR_ITS ---
MRI of the lumbar spine Clinical History: Myelopathy, radiculopathy Technique: Axial T2-weighted images, and sagittal T1-weighted, T2-weighted, and T2 fat-sat images wer e acquired. Findings: There is no fracture or subluxation of the lumbar spine. Vertebral bodies maintain normal h eight and alignment. No suspicious bone marrow signal abnormality seen. At L1-L2, there is no disc bulge or herniation. There is moderate facet arthropathy. No spinal canal stenosis or neural foraminal narrowing. At L2-L3, disc bulge or herniation. There is moderate facet arthropathy. No central canal stenosis or neural foraminal narrowing. L3-L4, there is minimal disc bulge with moderate facet arthropathy. No central canal stenosis or neur al foraminal narrowing. At L4-L5, there is mild diffuse disc bulge with moderate facet arthropathy. There is minimal central canal stenosis. There is mild bilateral neural foraminal narrowing. At L5-S1, there is mild diffuse disc bulge with moderate to advanced facet arthropathy. No central ca nal stenosis. There is advanced degenerative disc narrowing. There is moderate right neural foraminal narrowing. Left neural foramen preserved. Paravertebral soft tissues are unremarkable. Impression: Mild degenerative spondylosis overall, as detailed above. Reviewed, dictated and finalized at location . Impression: Mild degenerative spondylosis overall, as detailed above.
--- NOTE | ~2025-03-28 | MR_ITS ---
MRI of the cervical spine Clinical History: Myelopathy, radiculopathy Technique: Axial T2-weighted and gradient images, and sagittal T1-weighted, T2-weighted, and STIR viki ges were acquired. Following intravenous administration of 15 cc ProHance gadolinium, T1-weighted fat -sat imaging was performed in the axial and sagittal planes. Findings: There is no fracture or subluxation of the cervical spine. Vertebral bodies maintain normal height and alignment. No bone marrow signal abnormality seen. C2-C3, there is no disc bulge or herniation. There is minimal facet arthropathy. No central canal prerna nosis, cord compression, or neural foraminal narrowing. At C3-C4, there is minimal disc osteophyte convex. No canal stenosis or cord compression. There is pr obable minimal bilateral neural foraminal narrowing. At C4-C5, there is minimal disc osteophyte complex. No canal stenosis, cord compression, or neural fo raminal narrowing. At C5-C6, there is minimal disc bulge. No spinal canal stenosis, cord compression, or neural foramina l narrowing. At C6-C7, there is no disc bulge or herniation. No spinal canal stenosis, cord compression, or neural foraminal narrowing. No abnormal signal seen in the spinal cord. Paravertebral soft tissues are unremarkable. No abnormal postcontrast enhancement identified. Impression: Minimal degenerative change, as above. Reviewed, dictated and finalized at [facility]. Impression: Minimal degenerative change, as above.
--- NOTE | ~2025-03-28 | MR_ITS ---
MRI of the thoracic spine Clinical History: Myelopathy Technique: Axial T2-weighted and gradient images, and sagittal T1-weighted, T2-weighted, and STIR viki ges were acquired. Following intravenous administration of 15 cc ProHance gadolinium, T1-weighted fat -sat imaging was performed in the axial and sagittal planes. Findings: There is no fracture or subluxation of the thoracic spine. Vertebral bodies maintain normal height and alignment, aside from probable mild kyphosis. There is multilevel moderate to advanced de generative disc disease, especially of the mid to lower thoracic spine. No significant disc bulge or herniation seen at any thoracic level. No spinal canal stenosis or cord compression identified. Neural foramina are preserved throughout the thoracic spine. Paravertebral soft tissues are unremarkable. No abnormal postcontrast enhancement identified. Impression: Mild degenerative spondylosis overall, as detailed above. Reviewed, dictated and finalized at [facility]. Impression: Mild degenerative spondylosis overall, as detailed above.
--- OUTSIDE RECORDS SUMMARY | 2025-03-28 09:42 | XMS_ITS | Clinical Summary ---
Author Organization [facility] Address [address] [place] [address] Care Team Providers Care Bowling Ball Molder Name Role Phone Shawn Su MD Primary Care Provider [phone] Source Comments [facility],non-owned Affiliates and Associated Physician Practices is amultiple site organization consisting of ambulatory clinics and hospital sitesin [place], [place], [place] and [place]. This disclosure is being madepursuant to the Care Everywhere program and may not contain all information available regarding this patient. Last updated 18.[employer] [facility] Allergies No known active allergies Medications * Be aware that medications may not be up to date on this document. Alwaysverify current medications with the patient. candesartan (Atacand) 16 MG tablet Take 1 (one) tablet by mouth at bedtime 3 Active atorvastatin (Lipitor) 20 MG tablet Take 1 (one) tablet by mouth at bedtime 3 Active hydroCHLOROthi azide (Hydrodiuril) 12.5 MG Take 1 (one) tablet by mouth every morning 3 Active levothyroxine (Synthroid) 88 MCG tablet Take 1 (one) tablet by mouth every morning 3 Active acetaminophen (Tylenol) 325 MG tablet Take 2 (two) tablets by mouth every 8 hours Maximum allowable Acetaminophen amount = 4 Grams (4000 mg) / 24 hours. 90 tablet 3 Active lidocaine (Lidoderm) 5 % patch Apply 2 (two) patches to skin every 24 hours Apply patch to most painful area and remove after 12 hours. May reapply a new patch 12 hours later. 30 patch 3 Active folic acid (Folvite) 1 MG tablet Take 1 (one) tablet by mouth once daily 30 tablet 3 Active polyethylene glycol 3350 (Miralax) 17 g packet Take 17 (seventeen) g by mouth once daily as needed for Constipation 30 packet 3 Active gabapentin (Neurontin) 400 MG capsule Take 1 (one) capsule by mouth 3 times daily 3 Active DULoxetine (Cymbalta) 20 MG capsule Take 1 (one) capsule by mouth once daily 3 Active methocarbamol (Robaxin) 500 MG tablet Take 1 (one) tablet by mouth every 8 hours as needed for Muscle Spasms 30 tablet 3 Active ibuprofen (Motrin) 400 MG tablet Take 1 (one) tablet by mouth every 6 hours as needed for Pain 3 Active thiamine (Vitamin B-1) 100 MG tablet Take 1 (one) tablet by mouth once daily 3 Active oxyCODONE (Oxy-Ir) 5 MG capsuleIndicat ions:Trochante rissa bursitis of right hip,Muscular dystrophy (HCC) Take 1 (one) capsule by mouth every 6 hours as needed for Pain 12 capsule 3 Active Active Problems Problem Noted Date Diagnosed Date Muscular dystrophy 04/12/2023 Trochanteric bursitis of right hip 04/12/2023 Debility 04/11/2023 Family History Medical History Relation Name Comments Muscular Dystrophy Mother Relation Name Status Comments Mother Social History Tobacco Use Types Packs/Day Years Used Date Smoking Tobacco: Never Smokeless Tobacco: Never Tobacco Cessation:Counseling Given: Not Answered Alcohol Use Standard Drinks/Week Comments Yes 0 (1 standard drink = 0.6 oz pur e alcohol) daily wine drinker Overall Financial Resource Strain (CARDIA) Answe r Date Recorded How hard is it for you to pa y for the very basics like food, housing, medical care, and heating? Not very hard 04/11/2023 [facility] - Occupational Stress Questionnaire Answer Date Recorded Do you feel stress - tense, restless, nervous, or anxious, or unable to sleep at night because your mind is troubled all the time - these days? Not at all 04/11/2023 Hunger Vital Sign Answer Date Recorded Within the past 12 months, y ou worried that your food would run out before you got the money to buy more. Never true 04/11/20 23 Within the past 12 months, t he food you bought just didn't last and you didn't have money to get more. Never true 04/11/2023 PRAPARE - Transportation Answer Date Re corded In the past 12 months, has l ack of transportation kept you from medical appointments or from getting medications? No 03/31 In the past 12 months, has l ack of transportation kept you from meetings, work, or from getting things needed for daily living? No 04/11/2023 Housing Stability Vital Sign Answer Laurent e Recorded In the last 12 months, was t here a time when you were not able to pay the mortgage or rent on time? No 04/11/2023 In the last 12 months, how many places have you lived? 1 04/11/2023 In the last 12 months, was t here a time when you did not have a steady place to sleep or slept in a alf (including now)? No 04/11/2023 Sex and Gender Information Value Date Recorded Sex Assigned at Not on file Legal Sex Male 10:24 AM CDT Gender Identity Not on file Sexual Orientation Not on file Last Filed Vital Signs Vital Sign Reading Time Taken Comments Blood Pressure 127/76 04/19/2023 6:29 AM CDT Pulse 62 04/19/2023 6:29 AM CDT Temperature 36.2 C (97.2 F) 04/19/2023 6:29 AM CDT Respiratory Rate 16 04/19/2023 6:29 AM CDT Oxygen Saturation 96% 04/19/2023 6:29 AM CDT Inhaled Oxygen Concentration - - Weight 72.6 kg (160 lb) 04/11/2023 1:33 PM CDT Height 182.9 cm (6') 04/11/2023 1:33 PM CDT Body Mass Index 21.7 04/11/2023 1:33 PM CDT Plan of Treatment Health Maintenance Due Date Last Done Comments COLOGUARD (AGES 45-75) - COL ON CA SCREENING 1955 COLON MONITORING 1955 COLONOSCOPY - COLON CA SCREENING 1955 CT COLONOGRAPHY - COLON CA SCREENING 1955 Colorectal Cancer Screening 1955 FIT - COLON CA SCREENING 1955 FLEX SIG - COLON CA SCREENING 1955 HEPATITIS C SCREENING 07/13/1973 DTAP/TDAP/TD VACCINES (1 - Tdap) 1974 PNEUMOCOCCAL VACCINE 50+ (1 of 1 - PCV) 2005 ZOSTER VACCINE (1 of 2) 2005 Respiratory Syncytial Virus (RSV) Vaccine Pt: or over 60 yrs (1 - Risk 60-74 years 1-dose series) 2015 COVID-19 VACCINE (1 - 2023-2 5 season) 2024 DEPRESSION SCREENING 10/31/2024 MEDICARE AWV CALENDAR YEAR 2024 INFLUENZA VACCINE (Season Ended) 2025 HEPATITIS B VACCINE Aged Out No longe r eligible based on patient's age to complete this topic HIB VACCINE Aged Out No longer eligi ble based on patient's age to complete this topic HPV VACCINE Aged Out No longer eligi ble based on patient's age to complete this topic MENINGOCOCCAL (Group B) VACC INE SHARED DECISION-MAKING Aged Out No longer eligibl e based on patient's age to complete this topic MENINGOCOCCAL GROUPS A/C/Y/W VACCINE Aged Out No longer eligible b ased on patient's age to complete this topic Insurance [facility] MANAGED MEDICARE ADV MEDICARE SUPPLEMENT PAYOR GENERIC Advance Directives * Full Code (Latest Code Status on File) Date Activated Date Inactivated Comments 04/11/2023 1:20 PM 04/19/2023 11:22 AM Care Teams Bowling Ball Molder Relationship Specialty Start Date End Date Shawn Su MD [facility] [place] [id number] PCP - General Family Medicine 04/15/23
--- OUTSIDE RECORDS SUMMARY | 2025-03-28 09:44 | XMS_ITS | Clinical Summary ---
Author Organization [facility] Address [address] [place] [address] Care Team Providers Care Airbrush Painter Name Role Phone Kentrell Harper DO Primary Care Provider [phone] Rubens Hernandez MD Unavailable [phone] Donta Higgins MD Unavailable [phone] David Henson MD Unavailable [phone] Zak Martinez Unavailable [phone] Allergies No known active allergies Medications gabapentin (NEURONTIN) 100 mg capsule Take 1 capsule (100 mg total) by mouth 3 (three) times a day [address] (CYMBALTA) 20 mg capsule Take 1 capsule (20 mg total) by mouth daily Active folic acid (FOLVITE) 1 mg tablet Take 1 tablet (1,000 mcg total) by mouth daily Active gabapentin (NEURONTIN) 300 mg capsule Take 1 capsule (300 mg total) by mouth 3 (three) times a day 0 3 Active cholecalciferol (VITAMIN D-3) 5,000 unit capsule Take 125 mcg by mouth daily Active levothyroxine (SYNTHROID) 88 mcg tablet Take 1 tablet (88 mcg total) by mouth daily 2 Active hydroCHLOROthia zide (HYDRODIURIL) 12.5 mg tablet Take 1 tablet (12.5 mg total) by mouth physiotherapist's assistant before breakfast 2 Active atorvastatin (LIPITOR) 20 mg tablet Take 1 tablet (20 mg total) by mouth daily Active candesartan (ATACAND) 16 mg tablet Take 1 tablet (16 mg total) by mouth daily 2 Active ibuprofen (ADVIL,MOTRIN) 400 mg tablet Take 1 tablet (400 mg total) by mouth every 6 (six) hours as needed 3 Active thiamine (VITAMIN B1) 100 mg tablet Take 1 tablet (100 mg total) by mouth daily 3 Active folic acid 20 mg capsule Take by mouth Activ e Active Problems Problem Noted Date Diagnosed Date FSHD (facioscapulohumeral muscular dystrophy) Muscular dystrophy 04/12/2023 Trochanteric bursitis of right hip 04/12/2023 Immunizations Immunization Administration Dates Next Due Influenza, Quad, Adjuvantated, Intramuscular 09/2022 Influenza, Quadrivalent, Hig h Dose, Preservative Free, Intrr 08/10/2021 ZOSTER Recombinant 01/17/2023,11/12/2022 Surgical History Surgery Date Site/Laterality Comments TONSILECTOMY, ADENOIDECTOMY, BILATERAL MYRINGOTOMY AND TUBES Medical History Medical History Date Comments Hypertension Hyperlipidemia Thyroid disorder [place] teeth extracted History of vasectomy Muscular dystrophy (HCC) Per bandar rologist note, facial scapular humeral type muscular dystrophy. Family History Medical History Relation Name Comments Muscular dystrophy Brother Stroke Paternal Grandmother Relation Name Status Comments Brother Paternal Grandmother Social History Tobacco Use Types Packs/Day Years Used Date Smoking Tobacco: Never Tobacco Cessation:Counseling Given: No AUDIT-C Answer Date Recorded Q1: How often do you have a drink containing alcohol? 4 or more times a week 06/15/2023 Q2: How many drinks containi ng alcohol do you have on a typical day when you are drinking? 1 or 2 3 Q3: How often do you have si x or more drinks on one occasion? 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 Gender Identity Not on file Sexual Orientation Not on file Obstetrics History Last Filed Vital Signs Vital Sign Reading Time Taken Comments Blood Pressure 150/87 07/25/2023 12:33 PM CDT Pulse 94 07/25/2023 12:33 PM CDT Temperature - - Respiratory Rate - - Oxygen Saturation 100% 06/15/2023 1:28 PM CDT Inhaled Oxygen Concentration - - Weight 74 kg (163 lb 4 oz) 07/25/2023 12:33 PM C DT Height 182.9 cm (6' 0.01) 07/25/2023 12:33 PM C DT Body Mass Index 22.14 07/25/2023 12:33 PM CDT Plan of Treatment Health Maintenance Due Date Last Done Comments Colon Cancer Screening-Colonoscopy 1955 Depression Screening 1955 Fall Risk Assessment 1955 Hepatitis C Screening 1955 Prostate Cancer Screening-PSA 1955 DTaP/Tdap/Td Vaccine (1 - Tdap) 1966 Hepatitis B Screening 1973 Pneumococcal vaccine 65+ (1 of 1 - PCV) 2005 Abdominal Aortic Aneurysm (A AA) Screen 2020 Well Visit 65+ 2020 Covid-19 Vaccine (2023-2 5 season) 2024 07/12/2022, 02/03/2022, 08/06/2021, Additional history exists Influenza Vaccine (Season Ended) 2025 07/12/20, 08/10/2021 Zoster Vaccine Completed 01/17/2023, 11/12/2022 Insurance [facility] MEDICARE ADVANTAGE [facility] MCR SUPPLEMENT [facility] MEDICARE ADVANTAGE [facility] MCR SUPPLEMENT Care Teams Airbrush Painter Relationship Specialty Start Date End Date Kentrell Harper DO PCP - General Internal Medicine 06/07/23 Rubens Hernandez MD [address] [place] [address] Orthopedic Surgery 06/07/23 Donta Higgins MD [address] [place] [address] Neurologist Neurology 06/07/23 David Henson MD [address] [address] Pulmonary Disease 06/07/23 Zak Martinez PA [address] [address] Physician Certified Pathology Assistant Neurosurgery 06/16/23
--- OUTSIDE RECORDS SUMMARY | 2025-03-28 09:44 | XMS_ITS | Referral Summary ---
Author Organization [facility] Address [address] [place] [address] Care Team Providers Care Certified Procedural Coder Name Role Phone Kentrell Harper DO Primary Care Provider [phone] Rubens Hernandez MD Unavailable [phone] Donta Higgins MD Unavailable [phone] David Henson MD Unavailable [phone] Zak Martinez Unavailable [phone] Allergies No known active allergies Medications gabapentin [...] 1 tablet (12.5 mg total) by mouth police pilot before breakfast 2 Active atorvastatin (LIPITOR) 20 [...] Preservative Free, Intrr 08/10/2021 ZOSTER Recombinant 01/17/2023,11/12/2022 Social History Tobacco Use Types Packs/Day Years Used Date Smoking Tobacco: Never Tobacco Cessation:Counseling Given: No AUDIT-C Answer Date Recorded Q1: How often do you have a drink containing alcohol? 4 or more times a week 06/15/2023 Q2: How many drinks containi ng alcohol do you have on a typical day when you are drinking? 1 or 2 Q3: How often do you have si x or more drinks on one occasion? Never 06/15/2023 Personal Safety Answer Date Recorded Getting School Help Needed Not on file 12/08 Sex and Gender Information Value Date Recorded Sex Assigned at Not on file Legal Sex Male 3:18 AM FIELD SUPPORT REPRESENTATIVE Gender Identity Not on file Sexual Orientation [...] 07/25/2023 12:33 PM CDT Plan of Treatment Not on file Insurance [facility] MEDICARE ADVANTAGE [facility] SUPPLEMENT [facility] MEDICARE ADVANTAGE [facility] SUPPLEMENT Care Teams Certified Procedural Coder Relationship Specialty Start Date End Date Kentrell Harper DO PCP - General Internal Medicine 06/07/23 Rubens Hernandez MD [address] [place] [address] Orthopedic Surgery 06/07/23 Donta Higgins MD [address] [place] [address] Neurologist Neurology 06/07/23 David Henson MD [address] [address] Pulmonary Disease 06/07/23 Zak Martinez PA [address] [address] Physician Lab Director Neurosurgery 06/16/23
--- OUTSIDE RECORDS SUMMARY | 2025-03-28 09:44 | XMS_ITS | Data Portability ---
Author Organization [place] [facility], Main Office Address [address] [place] [address] Care Team Providers Care National Investigative Producer Name Role Phone ELKIN FARIAS Primary Care Provider SHAWN SIDHU Referring Provider Assessment Encounter Date Assessment Date Assessment LastModified by Organization Details LastModified Time 05/11/2023 05/11/2023 Impression: Patient has localized weakness right hip flexion and in particular knee extension that is asymmetric with the other side suggesting the possibility of an L3 radiculopathy. He has dense numbness in the anteromedial yap on the right which typically is L4 dermatome but there is some variability there. He has asymmetric reflexes right to left. I am suspicious that he has lumbar spinal stenosis affecting the L3 or L4 nerve roots her both possibly a disc protrusion is contributing to this. The reason he cannot walk is due to his quadriceps weakness that is rather severe. He does not trust the leg to hold him because his knee will buckle due to the quadriceps weakness. Given the severity of this weakness, if he does have correlating pathology that is severe lumbar spine, surgery would be an appropriate consideration rather than just pain management. Fact that he has significant numbness in the L4 dermatome argues against an exacerbation of his muscular dystrophy causing his weakness as there would not be numbness associated with the muscular dystrophy. I recommended obtaining an MRI scan at this time. I am going to prescribe a Medrol Dosepak which might give him some relief pain by decreasing inflammation around the nerve roots. I explained to him that based on the findings of the MRI scan the next step would be to send him to a neurosurgeon as soon as possible of appropriate based on the MRI findings. MRI is been scheduled for 05/16/2023. He will continue using a walker to avoid falling. 45 minutes spent total care this patient more the time spent in [id number] care. Addendum, 05/17/2023: Patient had his lumbar spine MRI this morning have reviewed the radiologist's report. The note were the findings were at L4-5 disc desiccation with diffuse disc bulge and superimposed right foraminal disc protrusion. Mild central canal stenosis with effacement of the right lateral recess. Moderate to severe right neural foraminal stenosis secondary to right foraminal disc protrusion. I feel these findings correspond well to his clinical L4 dermatomal numbness on the right and 3/5 quadriceps weakness on the right. I have recommended that this patient see a spine surgeon. I have discussed with him that he could see Dr. Jadyn Acosta or Dr. Jadyn Bryant at [facility] or he could refer him to Dr. Epifanio Pulido at [place]. he is going to do some research To see who takes his insurance. I am going to have Maria L call him tomorrow morning to establish the referral as soon as possible. He states that his pain is noticeably less since taking the Medrol Dosepak he is getting around better. [email or web address] Not available 05/17/2023 19:39:23 Plan of Treatment Reminders Order Date Submit Date Provider Last Modified By Organization Details Last Modified Time Details Appointments None recorded. Lab None recorded. Referral None recorded. Procedures None recorded. Surgeries None recorded. Imaging None recorded. Medication Orders Medrol (Casey) 4 mg tablets in a dose pack 023 023 [email or web address] [id number], [address], [place], [id number], 3 11:24:56 Patient TargetsNo targets recorded. Patient InstructionsNo instructions recorded. Reason for Referral None Reported. Results Created Date Observation Date Name Description Value Unit Range Abnormal Flag Note LastModifiedBy Organization Detail LastModifiedTime 08/10/2008/10/2021 PSA SCREE N PSA medicare screen 5.53 NG/mL 0.00-4 .00 high Not Available [facility] (Lab) [address] [place], [address], 08/10/2021 13:49:39 08/10/20 21 08/10/2021 TSH thyroid-stim ulating hormone 4.800 uIU/m L 0.465- 4.680 high Not Available [facility] (Lab) [address] [place], [address], 08/10/2021 13:49:37 08/10/2008/10/2021 T4 FREE free T4 1.22 NG/dL 0.78-2 .19 Not Available [facility] (Lab) [address] [place], [address], 08/10/2021 13:46:15 08/10/20 21 08/10/2021 COMPR EHENS TANMAY METAB OLIC PANEL carbon dioxide 28 mmol/ L 22-30 Not Available [facility] (Lab) [address] [place], [address], 08/10/2021 13:19:24 08/10/20 21 08/10/2021 COMPR EHENS TANMAY METAB OLIC PANEL sodium 135 mmol/ L 137-14 5 low Not Available [facility] (Lab) [address] [place], [address], 08/10/2021 13:19:24 08/10/20 21 08/10/2021 COMPR EHENS TANMAY METAB OLIC PANEL potassium 4.6 mmol/ L 3.5-5. 1 Not Available [facility] (Lab) [address] [place], [address], 08/10/2021 13:19:24 08/10/20 21 08/10/2021 COMPR EHENS TANMAY METAB OLIC PANEL chloride 100 mmol/ L 98-107 Not Available [facility] (Lab) [address] [place], [address], 08/10/2021 13:19:24 08/10/20 21 08/10/2021 COMPR EHENS TANMAY METAB OLIC PANEL agap 11.6 mmol/ L 14-22 low Not Available [facility] (Lab) [address] [place], [address], 08/10/2021 13:19:24 08/10/20 21 08/10/2021 COMPR EHENS TANMAY METAB OLIC PANEL glucose 90 mg/dL 70-99 Not Available [facility] (Lab) [address] [place], [address], 08/10/2021 13:19:24 08/10/20 21 08/10/2021 COMPR EHENS TANMAY METAB OLIC PANEL BUN 20 mg/dL 8-19 high Not Available [facility] (Lab) [address] [place], [address], 08/10/2021 13:19:24 08/10/20 21 08/10/2021 COMPR EHENS TANMAY METAB OLIC PANEL creatinine 0.78 mg/dL 0.66-1 .25 Not Available [facility] (Lab) [address] [place], [address], 08/10/2021 13:19:24 08/10/20 21 08/10/2021 COMPR EHENS TANMAY METAB OLIC PANEL GFR >60 Refer ence Range : [place] ge GFR Healt hy Adult : >60 mL/mi n/1.7 3 m2 Chron ic Kidne y Disea se: 15-60 mL/mi n/1.7 3 m2 Kidne y Failu re: <15/m L/min /1.73 m2 www.n iddk. nih.g ov MDRD study equat ion hasn' t been valid ated in child shannon <18 yrs of age, pregn ant women , the elder ly >85 yrs of age, or in some racia l or ethni c subgr oups, suc as Hispa nics. Outsi de the valid ated ivelisse eters , estim ated GFR is less accur ate requi ring clini elida judgm ent on a case by case basis . Clini elida inter preta tion for other races and ages must be made by the clini allen . Futhe rmore , any of th e limit ation s with the use of serum creat inine relat ed to nutri roscoe l statu s o r medic ation usage hasn' t accou nted for the MDRD Study equat ion. For perso ns < 18 yrs of age, a pedia tric GFR calcu lator can be locat ed on the [facility] websi te: https ://jonnie huang/tatianna donatowhit casillas s/kdo qi/gf r_cal culat or Not Available [facility] (Lab) [address] [place], [address], 08/10/2021 13:19:24 08/10/20 21 08/10/2021 COMPR EHENS TANMAY METAB OLIC PANEL alkaline phosphatase 52 U/L 38-126 Not Available [facility] (Lab) [address] [place], [address], 08/10/2021 13:19:24 08/10/20 21 08/10/2021 COMPR EHENS TANMAY METAB OLIC PANEL alanine aminotransfe rase 28 U/L 0-50 Not Available [facility] (Lab) [address] [place], [address], 08/10/2021 13:19:24 08/10/20 21 08/10/2021 COMPR EHENS TANMAY METAB OLIC PANEL aspartate aminotransfe rase 44 U/L 15-46 Not Available [facility] (Lab) [address] [place], [address], 08/10/2021 13:19:24 08/10/20 21 08/10/2021 COMPR EHENS TANMAY METAB OLIC PANEL bilirubin, total 0.80 mg/dL 0.20-1 .30 Not Available [facility] (Lab) [address] [place], [address], 08/10/2021 13:19:24 08/10/20 21 08/10/2021 COMPR EHENS TANMAY METAB OLIC PANEL calcium 9.3 mg/dL 8.4-10 .2 Not Available [facility] (Lab) [address] [place], [address], 08/10/2021 13:19:24 08/10/20 21 08/10/2021 COMPR EHENS TANMAY METAB OLIC PANEL total protein 7.2 g/dL 6.3-8. 2 Not Available [facility] (Lab) [address] [place], [address], 08/10/2021 13:19:24 08/10/20 21 08/10/2021 COMPR EHENS TANMAY METAB OLIC PANEL albumin 4.3 g/dL 3.0-4. 4 Not Available [facility] (Lab) [address] [place], [address], 08/10/2021 13:19:24 08/10/2008/10/2021 COMPR EHENS TANMAY METAB OLIC PANEL globulin 2.9 g/dL 2.6-4. 2 Not Available [facility] (Lab) [address] [place], [address], 08/10/2021 13:19:24 08/10/20 21 08/10/2021 COMPR EHENS TANMAY METAB OLIC PANEL A/G ratio 1.5 ratio 1.0-2. 0 Not Available [facility] (Lab) [address] [place], [address], 08/10/2021 13:19:24 08/10/2008/10/2021 LIPID PANEL LDL cholesterol, calculated 75 mg/dL 0-130 NIH KEVIN NSUS REPOR T RECOM MENDA TIONS FOR LDL: ADULT CHILD LOW RISK <130 <110 (OPTI MAL LDL) <100 ----- BORDE RLINE : 130-1 59 ----- HIGH RISK: >160 >130 A TRIGL YCERI DE RESUL T >400 INVAL IDATE S THE CALCU LATIO N FOR LDL FRACT IONAT ION - THE LDL RESUL T WILL NOT BE REPOR YANET. Not Available [facility] (Lab) [address] [place], [address], 08/10/2021 13:19:17 08/10/20 21 08/10/2021 LIPID PANEL cholesterol 158 mg/dL 140-19 9 NIH KEVIN NSUS RECOM MENDA TION FOR LUIZ STERO L: ADULT CHILD LOW RISK: <200 <170 BORDE RLINE : <200- 239 ----- HIGH RISK: >240 >200 Not Available [facility] (Lab) [address] [place], [address], 08/10/2021 13:19:17 08/10/20 21 08/10/2021 LIPID PANEL triglyceride s 64 mg/dL 0-150 NIH KEVIN NSUS REPOR T RECOM MENDA TION FOR TRIGL YCERI MARIA A: ADULT CHILD LOW RISK: <150 ----- BODER LINE: 150-1 99 ----- HIGH RISK: >200 ----- Not Available [facility] (Lab) [address] [place], [address], 08/10/2021 13:19:17 08/10/20 21 08/10/2021 LIPID PANEL HDL cholesterol 70 mg/dL 40- Not Available [facility] (Lab) [address] [place], [address], 08/10/2021 13:19:17 01/08/20 23 01/03/2023 PFT, compl ete No observ ation record ed. [email or web address] Not Available 2022 09:03:50 04/08/20 23 04/08/2023 CT, hip, w/o contr ast No observ [email or web address] [address], [place], [address], 04/11/2023 09:23:35 05/16/20 23 04/11/2023 MRI, hip, w/o contr ast No observ ation record ed. [email or web address] Not Available 2022 19:03:31 05/16/20 23 04/10/2023 XR, pelvi s No observ ation record ed. [email or web address] Not Available 2022 19:03:53 05/17/20 23 MRI, lumba r spine , w/o contr ast [facility] [address] [place] [address] Patien t Name: GAVIOTA ERNANDEZ Access ion #: [id number] Sex: M : 1954 9 3 Dictat ed By: Jacobo lam Attend ing Physic lisa: RUBENS BENITEZ ng Physic lisa: AIDA NATARAJAN Exam Date: 2022 11:48 AM Exam Name: MRI L SPINE WO Admitt ing Diagno sis(es ): CLINIC AL INFORM ATION: Low back pain with right lower extrem ity radicu lopath y. TECHNI ELIDA INFORM ATION: Multis equenc e multip lanar MRI images of the lumbar spine were obtain ed withou t contra st. COMPAR REBEL: None. INTERP RETATI ON: Straig htenin g of the normal lumbar lordos is. No signif icant spondy lolist hesis. Verteb ral body height s are mainta ined. Bus Analyst ior elemen ts are intact . No focal suspic ious marrow signal abnorm ality. Visual ized spinal cord and cauda equina are within normal limits . The conus medull malu is approp riate in signal at the T12-L1 level. Marked fatty atroph y in the lumbar parasp inal muscul ature. L1-L2: Disc desicc ation. No signif icant spinal canal or neural forami nal stenos is. L2-L3: Disc desicc ation. No signif icant spinal canal or neural forami nal stenos is L3-L4: Disc desicc ation. Mild disc bulge mildly indent ing the ventra l aspect of the thecal sac and encroa jolly on the neural forami na bilate rally. Mild bilate ral neural forami nal stenos es second russ to facet hypert rophy and encroa chment of the neural forami na by the disc bulge. L4-L5: Disc desicc ation with diffus e disc bulge and superi mposed right forami nal disc protru janusz. There is a mild degree of spinal canal stenos is and efface ment of the right latera l recess . Modera te to severe right neural forami nal stenos is second russ to the right forami nal disc protru janusz and concom itant facet hypert rophy. Mild to modera te left neural forami nal stenos is second russ to encroa chment of the left neural forame n by the disc bulge and facet hypert rophy. Page 1 [facility] [address] [place] [address] Patien t Name: GAVIOTA ERNANDEZ Access ion #: [id number] Sex: M : 1954 9 3 Dictat ed By: Jacobo lam Attend ing Physic lisa: AIDA NATARAJAN Orderi ng Physic lisa: AIDA ANTARAJAN Exam Date: 2022 11:48 AM Exam Name: MRI L SPINE WO Admitt ing Diagno sis(es ): L5-S1: Disc desicc ation. Severe disc space narrow ing with promin ent Modic type II endpla te change s. Modera te to severe right neural forami nal stenos is second russ to facet hypert rophy and dorsal spurri ng. Mild to modera te left neural forami nal stenos is second russ to facet hypert rophy. IMPRES JANUSZ: 1. Degene rative disc diseas e and facet diseas e in the lumbar spine is detail ed above, radius and the L4-L5 level, where there is disc bulge and right forami nal disc protru janusz causin g mild spinal canal stenos is, efface ment of the right latera l recess , and modera te to severe right neural forami nal stenos is with possib le imping ement of the exitin g right L4 nerve. 2. Modera te to severe right neural forami nal stenos is and mild-t o-mode rate left neural forami nal stenos is at L5-S1. Promin ent Modic type II endpla te change s at L5-S1. 3. Marked fatty atroph y of the lumbar parasp inal muscul ature. Electr onical ly Signed by: Jacobo lam at 2022 13:05: 52 PM Page 2 [email or web address] [facility] (Imaging) [address] [place], [address], 05/17/2023 14:33:59 05/17/20 23 05/17/2023 MRI, lumba r spine , w/o contr ast No observ ation record ed. [email or web address] [facility] [address] [place], [address], 05/18/2023 11:28:57 08/26/20 23 08/26/2023 MRI, cervi elida spine , w/o contr ast No observ ation record ed. [email or web address] [facility] [address] [place], [address], 08/29/2023 12:31:12 09/05/20 24 08/31/2024 PFT, compl ete No observ ation record ed. [email or web address] Not Available 09/05 11:32:20 Result Notes None recorded. Problems Name Problem SNOMED Code Status Onset Date Resolution Date Notes Provider Name and Address Organization Details Recorded Time Hyperchole sterolemia 42734156 Active 2020 Not Available [facility] 3 03:22:33 Hypertensi ve disorder 52028402 Active 2020 Not Available [facility] 3 03:22:33 Change in skin lesion 948076313 Active 2021 Not Available [facility] 3 03:22:33 Muscular dystrophy 93630002 Active 2020 Not Available [facility] 3 03:22:33 Essential hypertensi on 35666569 Active 2022 Not Available [facility] 3 03:22:33 Osteoarthr itis of right hip joint 5302993446739 07 Active 2022 Not Available [facility] 3 03:22:33 Pain of right hip joint 2416139477065 02 Active 2022 Not Available [facility] 3 03:22:33 Lumbar radiculopa thy 208884789 Active 2022 Not Available [facility] 3 03:22:33 Problem Notes None recorded. Procedures Surgical History Date Name Laterality Status Provider Name and Address Organization Details Recorded Time excision of basal cell carcinoma completed Not Available [facility] 12/29/2022 22:43:12 Tonsillectomy completed Not Available [facility] 12/29/2022 22:43:12 Imaging Results None recorded. Procedure Notes None recorded. Medical Equipment None Reported. Allergies No known drug allergies Medications Name Sig Start Date Stop Date Status Note LastModified by Organization Details LastModified Time atorvastatin 20 mg tablet TAKE 1 TABLET BY MOUTH EVERY DAY 2022 active Not Available Not Available Not Avai lable fluorouracil 5 % topical cream active Not Available Not Available Not Available gabapentin 400 mg capsule TAKE 1 CAPSULE BY MOUTH THREE TIMES DAILY active Not Available Not Available Not Available levothyroxin e 75 mcg tablet TAKE 1 TABLET BY MOUTH EVERY DAY active Not Available Not Available No t Available levothyroxin e 88 mcg tablet TAKE 1 TABLET BY MOUTH EVERY DAY active Not Available Not Available No t Available candesartan 16 mg tablet TAKE 1 TABLET BY MOUTH EVERY DAY active Not Available Not Available No t Available oxycodone 5 mg capsule TAKE 1 CAPSULE BY MOUTH EVERY 6 HOURS NEEDED FOR PAIN active Not Available Not Available No t Available folic acid 1 mg tablet TAKE 1 TABLET BY MOUTH DAILY active Not Available Not Available Not Available methylpredni solone 4 mg tablets in a dose pack FOLLOW PACKAGE DIRECTIONS active Not Available Not Available N ot Available duloxetine 20 mg capsule,temo yed release TAKE 1 CAPSULE BY MOUTH DAILY active Not Available Not Available Not Available hydrochlorot hiazide 12.5 mg tablet TAKE 1 TABLET BY MOUTH EVERY MORNING active Not Available Not Available No t Available Vitals Date Recorded Body mass index (BMI) Body height Oxygen saturation Oxygen saturation in Arterial blood by Pulse oximetry Heart rate Body temperature Body weight Systolic blood pressure Diastolic blood pressure Provider Name and Address Organization Details Last Updated DateTime 1 21.8 kg/m2 182.88 cm 98 % 98 % 81 /min 97.4 [degF] 15739.3 7 g 122 mm[Hg] 80 mm[Hg] Not Available [facility] 3 22:43:44 Date Recorded Body height Body mass index (BMI) Body weight Provider Name and Address Organization Details Last Updated DateTime 05/11/2023 177.8 cm 22 kg/m2 46306.63 g ALIZA Chi [place] [facility] 05/11/2023 09:16:45 Date Recorded Body mass index (BMI) Body height Oxygen saturation Oxygen saturation in Arterial blood by Pulse oximetry Heart rate Body temperature Body weight Systolic blood pressure Diastolic blood pressure Provider Name and Address Organization Details Last Updated DateTime 22.1 kg/m2 182.88 cm 98 % 98 % 80 /min 97 [degF] 35984.5 6 g 106 mm[Hg] 80 mm[Hg] Not Available [facility] 22:43:44 Social History Question Answer Notes LastModified by Organizat ion Details LastModified Time Tobacco Smoking Status Never Smoker Not Available [facility] 12/29/2022 22:42:52 Do You Have An Advance Directive? Yes [id number] Information not available 12/29/2022 Are You Blind Or Do You Have Difficulty Seeing? No MIGRATION.[id number] Information not available 12/29/2022 In The 14 Days Before Symptom Onset, Have You Had Close Contact With A Laboratory-confirm ed COVID-19 While That Case Was Ill? No MIGRATION.[id number] Information not available 12/29/2022 In The 14 Days Before Symptom Onset, Have You Had Close Contact With A Person Who Is Under Investigation For COVID-19 While That Person Was Ill? No MIGRATION.363417 0946 Information not available 12/29/2022 Are You Deaf Or Do You Have Serious Difficulty Hearing? No MIGRATION.[id number] 5086 Information not available 12/29/2022 What Type Of Diet Are You Following? VEGETARIAN MIGRATION.[id number] 9028 Information not available 12/29/2022 Do You Have A Medical Power Of Mannequin Coloring Artist? Yes MIGRATION.324950 2057 Information not available 12/29/2022 What Was The Date Of Your Most Recent Tobacco Screening? 08/10/2021 MIGRATION.[id number] [id number] Information not available 12/29/2022 Do You Use Your Seat Belt Or Car Seat Routinely? Yes MIGRATION.001424 1671 Information not available 12/29/2022 Are You Passively Exposed To Smoke? No MIGRATION.592347 2613 Information not available 12/29/2022 Are There Any Smokers In Your House? No MIGRATION.821467 0758 Information not available 12/29/2022 Have You Recently Traveled Abroad? No MIGRATION.855351 1320 Information not available 12/29/2022 Do You Have Difficulty Walking Or Climbing Stairs? No MIGRATION.898586 5792 Information not available 12/29/2022 Are You Currently In School? No MIGRATION.271700 2387 Information not available 12/29/2022 Do You Have Any Dietary Restrictions? No MIGRATION.407700 8835 Information not available 12/29/2022 Sex: Unknown Functional Status Question Answer Note LastModified by Organizat ion Details LastModified Time What is your level of alcohol consumption? Occasional [email or web address] Information not available 05/11/2023 Do you have transportation difficulties? No MIGRATION.[id number] 026 Information not available 12/29/2022 Are you able to walk? YESWOREST MIGRATION.[id number] 026 Information not available 12/29/2022 Do you have difficulty doing errands alone? No MIGRATION.[id number] 026 Information not available 12/29/2022 Are you able to care for yourself? Yes MIGRATION.[id number] 026 Information not available 12/29/2022 Do you have difficulty dressing or bathing? No MIGRATION.[id number] 026 Information not available 12/29/2022 Mental Status Question Answer Note LastModified by Organizat ion Details LastModified Time Do you have difficulty concentrating, remembering or making decisions? No [id number] Information not available 12/29/2022 Family History Relationship Description Onset Age of this Age Resolved Age Notes LastModified by Organization Details LastModified Time Brother Muscular dystrophy [id number] Not available 12/29/2022 22:43:13 Mother Muscular dystrophy MIGRATION.[id number] Not available 12/29/2022 22:43:13 Maternal Uncle Muscular dystrophy MIGRATION.401 [id number] Not available 12/29/2022 22:43:13 Medical History Condition Response BLINDNESS N RHEUMATIC FEVER N KIDNEY STONES N BLADDER PROBLEMS N MRSA N OTHER # 1 N POLIO N LUNG DISEASE/DISORDER N RADIATION / CHEMOTHERAPY N COPD N Other # 2 N BLOOD DISEASES N SURGERY N EAR OR HEARING PROBLEMS N MUMPS N FEMALE PROBLEMS / INFECTIONS N DEPRESSION (INCLUDING POST ) N BOWEL PROBLEMS N STROKE/TIA N THYROID DISEASE N ULCERS N BENIGN PROSTATIC HYPERPLASIA N MEASLES N CERVICALGIA N TB SKIN TEST N MYOCARDIAL INFARCTION N PARAPELGIA N OBESITY N GERD/NAUSEA N ANEURYSM N URINARY/BLADDER/KIDNEY PROBLEMS N CORONARY ARTERY DISEASE (CAD) N MENIERE'S DISEASE N ADDICTION CONCERNS N ENDOMETRIOSIS N USE OF BLOOD THINNERS N SKIN PROBLEMS Y EMPHYSEMA N GASTROINTESTINAL DISORDER N MUSCLE,JOINT OR BONE PROBLEMS Y GASTROINTESTINAL BLEEDING N BLOOD CLOTS N ASTHMA N CATARACTS N ERECTILE DYSFUNCTION N GI PROBLEMS N CHF N Low Testosterone N NEUROPATHY N INFERTILITY N AIDS/HIV N FRACTURES N CHEMOTHERAPY / RADIATION N VISION/EYE PROBLEMS N LIVER DISEASE N MALE HYPOGONADISM N HYPERTENSION Y ANXIETY DISORDER N BLOOD TRANSFUSION N ANEMIA/BLOOD DISORDER N CHRONIC EAR INFECTIONS N BRONCHITIS N TUBERCULOSIS N GLAUCOMA N FOOT PROBLEM N DIVERTICULITIS N SLEEP APNEA N CHICKENPOX N ALLERGIES/HAYFEVER N INFECTIOUS DISEASE N PROSTATE N HEART ARRHYTHMIA N INSOMNIA N HIGH CHOLESTEROL / HYPERLIPIDEMIA Y EYE PROBLEMS N HYPERTHYROIDISM Y EATING DISORDER N NEUROLOGICAL PROBLEMS N EDEMA N CHRONIC PAIN SYNDROME N HYPOTHYROIDISM N CAROTID BLOCKAGE N CONSTIPATION N BACK / NECK PROBLEMS N HAVE YOU BEEN HOSPITALIZED OR SEEN IN [facility] ER IN THE PAST YEAR ? N ATHEROSCLEROSIS N BREAST PROBLEMS N DIALYSIS N ECZEMA N FIBROMYALGIA N OSTEOPOROSIS N ARTHRITIS N NO SIGNIFICANT PAST MEDICAL HISTORY N APPENDICITIS N DIABETES, TYPE N BAD TEETH N HEARTBURN / REFLUX N ADD/ADHD N AUTISM SPECTRUM DISORDER (ASD) N HEPATITIS / LIVER DISEASE N PULMONARY DISEASE N GOUT N SLEEP DISORDER N ALZHEIMER'S DISEASE N PAIN N DEMENTIA N HERPES N SEIZURES/EPILEPSY N HEADACHES/MIGRAINES Y VASCULAR DISEASE N PACEMAKER N DIZZINESS N HEART DISEASE/HEART PROBLEMS N KIDNEY DISEASE N SCARLET FEVER N MULTIPLE SCLEROSIS N DEVELOPMENTAL OR BEHAVIORAL DISORDERS N MENTAL DISORDER/ILLNESS N CANCER: SPECIFY N CARDIAC ARRHYTHMIA N PNEUMONIA N ATRIAL FIBRILLATION N Gall Stones N PULMONARY EMBOLISM N AUTOIMMUNE DISEASE N Immunizations Vaccine Type Date Status Note Provider Nam e and Address Organization Details Recorded Time Influenza, high-dose, quadrivalent, PF 08/10/2021 completed Not Available [facility] 3 03:22:33 Past Encounters Encounter ID Performer Location Encounter Start Date Encounter Closed Date Diagnosis/Indication Diagnosis SNOMED-CT Code Diagnosis ICD10 Code Diagnosis Note [id number] Shawn Su MD [facility] Kyle sumner [address] [place] [address] 02/03/2021 00:00:00 02/03/2021 22:16:39 [id number] Shawn Su MD [facility] Family Practice [place] arnoldo [address] [place] [address] 08/10/2021 00:00:00 08/10/2021 09:36:37 [id number] Rubens Hernandez MD [facility] Ortho Frieda Alford [address] [place], [place] [address] 05/11/2023 08:44:35 05/16/2023 09:58:40 Pain of right hip joint [id number] 41366 M25.551 Health Concerns Section Related Observation LastModified by Organization Detai ls LastModified Time None Recorded Concern Status LastModified by Organization Details LastModified Time None Recorded Advance Directives Directive Y: Payers Encounter Date Sequence Insurance Name Policy Number Policy Adams Covered Member ID Adams Member ID Guarantor Name 05/11/2023 1 [facility] (MEDICARE REPLACEMENT/A DVANTAGE - HMO) [id number] Gaviota Slaughter [id number] Gaviota Slaughter 05/11/2023 2 [facility] - DOS PRIOR TO 2024 (PPO) Gaviota Slaughter [id number] Gaviota Slaughter Notes Date Note Type Note Provider Name and Address Organization Details Recorded Time 3 text/html patient is a 67-year-old gentleman who presents for evaluation of his right hip. Patient has a history of facioscapulohumeral musculo dystrophy. he has had this for many years and has remained normally active. He has always been able to walk without a gait aid. He started having symptoms lateral right hip pain after a trip to the [place] when he did much more walking than usual. Prior to this he would walk at most a mi at a time and he would have some difficulty with stairs recently. When he came back from [place] and 04/04/2023 he started noticing some mild symptoms around the lateral aspect of his right hip at in subtly on 04/08/2023 his pain became excruciating a deep stabbing pain in the lateral aspect of the right hip. Lately is noted some pain the anterior groin but this is mild. He went to [facility] complaining of severe pain in the lateral right hip and his right leg would not hold his weight. He was transferred to [facility] emergency room. There is no bed available so a waited in the emergency room and then was transferred to [facility] in [place] where he was admitted spent 1 week in the hospital. MRI scan of the right hip was obtained on 04/11/2023 and MRI scan of the pelvis was also obtained. I reviewed the radiologist's report and I reviewed the images with patient. There was complete fatty replacement of the gluteus minimus bilaterally anterior 3 force and moderate atrophy and fatty infiltration of anterior 50% of the gluteus medius both on the right and the left with more significant atrophy on the left. The abductor tendons however were well visualized and were intact and I pointed this out to the patient and it was at that time that he explained to me that he had a history of muscular dystrophy which explains the atrophy and fatty replacement of these muscles without associated degenerative tearing of the associated tendons. Other than the fatty replacement and muscular atrophy, there were no abnormalities in the right hip or pelvis. X-rays right hip and pelvis showed minimal degenerative changes of the right hip consistent with age no fracture. Tiny calcifications were noted lateral to the greater trochanter consistent with dystrophic calcification in the abductor tendons. He did have a cortisone shot in the trochanteric bursa of the right hip on April 28 which dulled the pain in that area. Patient was discharged to [facility] in rehab and left on April 30 discharged home with home health care and physical therapy. He has used a walker since the 1st went to the emergency. He has noticed some numbness lateral right thigh starting about 3 weeks ago and 2 weeks ago he noticed some numbness in the anterior yap on the right. He was started on methocarbamol gabapentin and duloxetine. He reports pain in the front of the hip side of the hip buttock lower back and thigh. Rubens Hernandez MD [address] [place] [address], [place] [address], [place], [address], [place] [employer] 05/17/2023 19:39:26
--- OUTSIDE RECORDS SUMMARY | 2025-03-28 09:44 | XMS_ITS ---
Author Name Auto Generated, Auto Generated Organization [facility] Address [address] [place] [address] Phone [phone] Care Team Providers Care Sexologist Name Role Phone Haroon Salinas Unavailable Epifanio Abraham Unavailable Functional Status No Results Mental Status No Results Allergies and Intolerances Name Onset Date Reaction Severity No Known Allergies (Allergy) TueApr 19 15:18:00 EDT 2022 Medications Medication Directions Start Date End Date methylPREDNISolone acetate 4 0 mg/mL suspension for injection 40mg VIAL (ML) Intramuscular 1 Time Daily for 1 Day Indication: Pain/InflammationMD to inject 40mg Medrol with 10mL lidocaine to right hip on 04/25Apr 28 12:58:00 EDT 2022Apr 29 12:57:00 EDT 2022 lidocaine HCL 10 mg/mL (1 %) injection solution 10mL VIAL (ML) Intramuscular 1 Time Daily for 1 Day Indication: Pain/InflammationMD to inject 10mL lidocaine to right hip TueApr 28 13:00:00 EDT 2022Apr 29 12:59:00 EDT 2022 levothyroxine 100 mcg tablet 1 TABLET TA BLET Oral Every Morning Indication: HYPOTHYROIDISM TueApr 22 16:47:00 EDT 2022Apr 30 01:00:00 EDT 2022 cholecalciferol (vitamin D3) 25 mcg (1,000 unit) tablet 1 tab TABLET Oral 1 Time Daily Indication: vitamin D deficiency TueApr 22 16:48:00 EDT 2022Apr 30 01:00:00 EDT 2022 levothyroxine 88 mcg tablet 1 TABLET TAB LET Oral Every Morning Indication: HYPOTHYROIDISM TueApr 22 07:00:00 EDT 2022Apr 22 16:48:00 EDT 2022 methylPREDNISolone acetate 4 0 mg/mL suspension for injection 40mg VIAL (ML) Intramuscular 1 Time Daily for 1 Day Indication: Pain/InflammationMD to inject 40mg Medrol with 10mL lidocaine to right hip on 04/25Apr 25 07:00:00 EDT 2022Apr 25 13:00:00 EDT 2022 lidocaine HCL 10 mg/mL (1 %) injection solution 10mL VIAL (ML) Intramuscular 1 Time Daily for 1 Day Indication: Pain/InflammationMD to inject 10mL lidocaine to right hip TueApr 25 07:00:00 EDT 2022Apr 25 13:01:00 EDT 2022 TUBErsoL 5 tub. unit/0.1 mL intradermal injection solution 0.1 ml VIAL (ML) Intradermal 1 Time Weekly for 2 Weeks Indication: admit 1st injection on admission, then one week after. Read between 48 and 72 hours TueApr 20 07:00:00 EDT 2022Apr 30 01:00:00 EDT 2022 TUBErsoL 5 tub. unit/0.1 mL intradermal injection solution Read Results VIAL (ML) Other 1 Time Weekly for 2 Weeks Indication: admit Read results between 48-72 hours after 1st and 2nd (1 week apart). If positive do chest x-ray. TueApr 22 07:00:00 EDT 2022Apr 30:00:00 EDT 2022 acetaminophen 325 mg tablet 2 TABLETS TA BLET Oral Every 8 Hours Indication: PAIN (2 [id number])*DO NOT EXCEED 4GM/DAY APAP FROM ALL SOURCES* TueApr 19 12:30:00 EDT 2022Apr 30:00: EDT 2022 DULoxetine 20 mg capsule,delayed release 1 CAPSULE CAPSULE,DELAYED RELEASE (ENTERIC COATED) Oral 1 Time Daily Indication: ANTIDEPRESSANT TueApr 19 12:30:00 EDT 2022Apr 30:00:00 EDT 2022 folic acid 1 mg tablet 1 TABLET TABLET O ral 1 Time Daily Indication: VITAMIN SUPPLEMENT TueApr 19 12:30:00 EDT 2022Apr 30:00:00 EDT 2022 gabapentin 400 mg capsule 1 CAPSULE CAPS ULE Oral 3 Times Daily Indication: ANTICONVULSANT/NERVE PAIN TueApr 19 12:30:00 EDT 2022Apr 30:00:00 EDT 2022 ibuprofen 400 mg tablet 1 TABLET TABLET Oral PRN Every 6 Hours Indication: PAIN TueApr 19 12:30:00 EDT 2022Apr 30:00: EDT 2022 lidocaine 5 % topical patch 2 PATCHES AD HESIVE PATCH, MEDICATED Topical Every 12 Hours Indication: PAIN APPLY TO MOST PAINFUL AREA*ON FOR 12 HOURS, OFF FOR 12 HOURS* TueApr 19 12:30:00 EDT 2022Apr 30:00: EDT 2022 methocarbamoL 500 mg tablet 1 TABLET TAB LET Oral PRN Every 8 Hours Indication: MUSCLE SPASMS TueApr 19 12:30:00 EDT 2022Apr 30:00:00 EDT 2022 oxyCODONE 5 mg capsule 1 CAPSULE CAPSULE Oral PRN Every 6 Hours Indication: PAIN TueApr 19 12:30:00 EDT 2022Apr 30:00:00 EDT 2022 polyethylene glycoL 3350 17 gram/dose oral powder 17 GRAMS POWDER (GRAM) Oral PRN 1 Time Daily Indication: CONSTIPATION *DISSOLVE 17 GRAMS IN 4-8 OZ OF LIQUID* TueApr 19 12:30:00 EDT 2022Apr 30:00:00 EDT 2022 thiamine HCl (vitamin B1) 10 0 mg tablet 1 TABLET TABLET Oral 1 Time Daily Indication: VITAMIN SUPPLEMENT TueApr 20 01:00:00 EDT 2022Apr 30:00:00 EDT 2022 atorvastatin 20 mg tablet 1 TABLET TABLE T Oral Hour Of Sleep Indication: HIGH CHOLESTEROL TueApr 19 12:30:00 EDT 2022Apr 30:00:00 EDT 2022 candesartan 16 mg tablet 1 TABLET TABLET Oral Hour Of Sleep Indication: ANTIHYPERTENSIVE TueApr 19 12:30:00 EDT 2022Apr 30:00:00 EDT 2022 hydroCHLOROthiazide 12.5 mg tablet 1 TABLET TABLET Oral Every Morning Indication: DIURETIC TueApr 19 12:30:00 EDT 2022Apr 30:00:00 EDT 2022 levothyroxine 88 mcg tablet 1 TABLET TAB LET Oral Every Morning Indication: HYPOTHYROIDISM TueApr 19 12:30:00 EDT 2022 Jaye Apr 21 06:41:00 EDT 2022 Problems Active Concerns * Other bursitis of hip, right hip* Code: * Start Date: TueApr 19 00:00:00 EDT 2022 * End Date: * Text: * Facioscapulohumeral muscular dystrophy* Code: * Start Date: TueApr 19 00:00:00 EDT 2022 * End Date: * Text: * Hypothyroidism, unspecified* Code: * Start Date: TueApr 19 00:00:00 EDT 2022 * End Date: * Text: * Hyperlipidemia, unspecified* Code: * Start Date: TueApr 19 00:00:00 EDT 2022 * End Date: * Text: * Essential (primary) hypertension* Code: * Start Date: TueApr 19 00:00:00 EDT 2022 * End Date: * Text: * Rhabdomyolysis* Code: * Start Date: TueApr 19 00:00:00 EDT 2022 * End Date: * Text: * Alcohol abuse, uncomplicated* Code: * Start Date: TueApr 19 00:00:00 EDT 2022 * End Date: * Text: * Major depressive disorder, single episode, unspecified* Code: * Start Date: TueApr 19 00:00:00 EDT 2022 * End Date: * Text: * Slow transit constipation* Code: * Start Date: TueApr 19 00:00:00 EDT 2022 * End Date: * Text: * Mixed hyperlipidemia* Code: * Start Date: TueApr 19 00:00:00 EDT 2022 * End Date: * Text: * Weakness* Code: * Start Date: TueApr 19 00:00:00 EDT 2022 * End Date: * Text: * Unsteadiness on feet* Code: * Start Date: TueApr 19 00:00:00 EDT 2022 * End Date: * Text: * Drug induced constipation* Code: * Start Date: TueApr 19 00:00:00 EDT 2022 * End Date: * Text: * Adverse effect of other opioids, subsequent encounter* Code: * Start Date: TueApr 19 00:00:00 EDT 2022 * End Date: * Text: * Unilateral primary osteoarthritis, right hip* Code: * Start Date: TueApr 19 00:00:00 EDT 2022 * End Date: * Text: * Vitamin D deficiency, unspecified* Code: * Start Date: TueApr 19 00:00:00 EDT 2022 * End Date: * Text: Reason for Referral Past Medical History
--- OUTSIDE RECORDS SUMMARY | 2025-03-28 09:44 | XMS_ITS | Data Portability ---
Author Organization [facility] [employer], [facility] Address [address] [place] [address] Latasha cece MD [place] [address] Assessment No assessment recorded. Plan of Treatment Reminders Order Date Submit Date Provider Last Modified By Organization Details Last Modified Time Details Appointments None recorded. Lab PSA, total + free, serum or plasma 2016 017 TERRY [facility], [address] [place], [address], 7 09:09:22 TSH, ultra-sens itive, serum 2016 017 TERRY [facility], [address] [place], [address], 7 09:09:23 Referral None recorded. Procedures None recorded. Surgeries None recorded. Imaging None recorded. Medication Orders levothyrox ine 50 mcg tablet 2016 017 [id number], [address] [place], [place], [id number], 7 09:44:49 Patient TargetsNo targets recorded. Patient Instructions Encounter Date Encounter Id Patient Instructions Last Modified By Organization Details Last Modified Time 09/02/2017 [id number] prostate cancer: care instructions TERRY Not available 10/09/2017 05:11:41 hypothyroidism: care instructions TERRY Not available 10/09/2017 05:11:03 diagnosis of prostate cancer not confirmed.. h/O elevated psa and followed by urologist to whom I will forwared results jarvis Not available 09/02/2017 17:32:03 Reason for Referral None Reported. Results Created Date Observation Date Name Description Value Unit Range Abnormal Flag Note LastModifiedBy Organization Detail LastModifiedTime 09/02/20 17 09/03/2017 PSA, total + free, serum or plasm a prostate specific Ag, serum 1.4 NG/mL 0.0-4. 0 Jono ECLIA metho dolog y. Accor ding to the Ameri can Urolo gical Assoc iatio n, Serum PSA shoul d decre ase and remai n at undet ectab le level s after radic al prost atect cristofer. The AUA defin es bioch emica l recur rence as an initi al PSA value 0.2 ng/mL or great er follo wed by a subse quent confi rmato ry PSA value 0.2 ng/mL or great er. Value s obtai marissa with diffe rent assay metho ds or kits canno t be used inter desai eably . Resul ts canno t be inter prete d as absol [place] evide nce of the prese nce or absen ce of saeid ortega se. Not Available [facility] ([facility]) [address] [facility], [place], [address], 09/03/2017 09:09:22 09/02/20 17 09/03/2017 PSA, total + free, serum or plasm a PSA, free 0.29 NG/mL n/a Jono ECLIA metho dolog y. Not Available [facility] ([facility]) [address] [place], [address], 09/03/2017 09:09:22 09/02/20 17 09/03/2017 PSA, total + free, serum or plasm a % free PSA 20.7 % The table below lists the proba bilit y of prost ate cance r for men with non-s uspic ious EN resul ts and total PSA betwe en 4 and 10 ng/mL , by patie nt age (Kelly rashid et al, SLOAN 1998, 279:1 542). % Free PSA 50-64 yr 65-75 yr 0.00- 10.00 % 56% 55% 10.01 -15.0 0% 24% 35% 15.01 -20.0 0% 17% 23% 20.01 -25.0 0% 10% 20% >25.0 0% 5% 9% Sarah zhao note: Bhargavi bryan et al did not make speci fic recom mamadou mcelroy ding the use of perce nt free PSA for any other popul ation of men. Not Available [facility] ([facility]) [address] [facility], [place], [address], 09/03/2017 09:09:22 09/02/20 17 09/03/2017 TSH, ultra -sens itive , serum TSH 4.040 uIU/m L 0.450- 4.500 Not Available [facility] ([facility]) [address] [facility], [place], [address], 09/03/2017 09:09:23 Result Notes None recorded. Procedures Surgical History Date Name Laterality Status Provider Name and Address Organization Details Recorded Time 8 Colonoscopy completed Julian Malin MD [address], [place], [address], [facility] 09/02/2017 17:21:48 Imaging Results None recorded. Procedure Notes None recorded. Medical Equipment None Reported. Allergies No known drug allergies Medications Name Sig Start Date Stop Date Status Note LastModified by Organization Details LastModified Time levothyroxine 50 mcg tablet TK 1 T PO QD 017 active Not Available Not Available Not Avai lable Vitals Date Recorded Body weight Body mass index (BMI) Body height Heart rate Oxygen saturation Oxygen saturation in Arterial blood by Pulse oximetry Body temperature Systolic blood pressure Diastolic blood pressure Provider Name and Address Organization Details Last Updated DateTime 7 35867.8 8 g 21.8 kg/m2 182.88 cm 66 /min 98 % 98 % 97.92 [degF] 138 mm[Hg] 74 mm[Hg] Zak Alvarado [facility] 7 09:21:57 Social History Question Answer Notes LastModified by Organizat ion Details LastModified Time Tobacco Smoking Status Never [facility]/2017 09:19:53 What Was The Date Of Your Most Recent Tobacco Screening? 09/02/2017 Information n ot available 05/26/2019 Sex: Unknown Functional Status None recorded. Mental Status None recorded. Family History Relationship Description Onset Age of this Age Resolved Age Notes LastModified by Organization Details LastModified Time Father Muscular dystrophy jarvis Not available 2016 17:23:14 Mother Muscular dystrophy abrantz Not available 2016 17:23:14 Medical History Condition Response Hypothyroidism (under active) Y Prostate Cancer Y Past Encounters Encounter ID Performer Location Encounter Start Date Encounter Closed Date Diagnosis/Indication Diagnosis SNOMED-CT Code Diagnosis ICD10 Code Diagnosis Note [id number] Julian Malin MD [facility] [address] [facility] [place] [address] 09/02/2017 09:02:59 09/02/2017 11:45:19 Hypothyroidism 22285241 E03.9 Malignant neoplasm of prostate [id number] C61 Health Concerns Section Related Observation LastModified by Organization Detai ls LastModified Time None Recorded Concern Status LastModified by Organization Details LastModified Time None Recorded Advance Directives Directive None Recorded Payers Insurance Date Sequence Insurance Name Policy Number Policy Adams Covered Member ID Adams Member ID Guarantor Name 09/02/2017 1 *SELF PAY* Alejandro Slaughter 09/02/2017 1 [facility] - DOS PRIOR TO 2024 (PPO) Christiano Slaughter [id number] Christiano Slaughter Notes Date Note Type Note Provider Name and Address Organization Details Recorded Time 09/02/2017 text/html refill thyroid meds. he also has a h/o elevated psa and is followed by a urologist. will draw psa today to forward Julian Malin MD [address], [place], [address], [facility] 09/02/2017 17:32:08
== END 2025-03-28 09:34 | disposition home or self-care (01) ==
PROVIDERS: PCP Internal Medicine; Visit Provider Psychiatry & Neurology Neurology
DX: G95.9 Disease of spinal cord, unspecified (principal); M47.14 Other spondylosis with myelopathy, thoracic region; M47.26 Other spondylosis with radiculopathy, lumbar region
CPT/HCPCS: 72148; 72156; 72157; A9579

== ENCOUNTER 2025-08-12 13:39 | Outpatient (CLI) | payer MEDICARE, SELFPAY ==
--- OUTSIDE RECORDS SUMMARY | 2023-06-10 06:00 | XMS_ITS | Continuity of Care Document ---
Author Organization [facility] Address [address] [place] [address] Phone Care Team Providers Care Photoresist Contact Printer Name Role Phone Julio Cesar Bass MD Unavailable Unavailable Procedures Procedure Date INJECTION ANESTHETIC AND/OR STERIOD, TRANS EPIDURAL LUMB OR SACRAL,, SINGLE LEVE SURGICAL TRAY LOW OSMOLAR CONTRAST (200 TO 299 MG IODI NE) Injection, Triamcinolone Acetonide, 10mg Advance Directives Directive Yes / No Effective Date File Name No Information Encounters Encounter Description Practice Location Reason(s) For Visit Diagnoses Date Provider Providers [facility] [address], [place], [place], [id number], [place] tel:[phone] [facility] No Information Kali Harrell. [address] , [place], [place], [id number], [place]. tel:[phone] Referring Provider: Epifanio Pulido DO, [address], [place], [address]. tel:[phone] Family History Family Member Type Diagnosis Age At Onset No Information Payers Payer name Insurance type Covered constitution party ID Authoriza tijane(s) [facility] [employer] PPO MB [id number] NAPP GEHA MDCR SUPPLEMENT CI [id number] NAPP Social History Type Description Quantity Date Captured Comments Sex Male Smoking Status No Information Chief Complaint And Reason For Visit No Information Reason For Referral Reason For Referral No Information History Of Present Illness Encounter Date Complaint History Of Prese nt Illness No Information Functional Status Date Functional Assessmen t No Information Instructions Date Instruction Additional Infor mation No Information Assessments Type Assessment Date No Information Patient Care Teams Name Effective Dates (start - stop) Status Members No Information
--- NOTE | 2025-08-12 13:58 | ECHO_ITS ---
Patient Info Name: Christiano Slaughter Age: 70 years : 1955 Gender: Male Ht: 72 in Wt: 170 lbs BSA: 1.98 m2 HR: 68 bpm BP: 129 / 85 mmHg Technical Quality: Poor Exam Date: 08/12/2025 2:07 PM Patient Status: O Admit Date: 08/12/2025 Exam Type: CA echo doppler color flow Complete two-dimensional, color flow and Doppler transthoracic echocardiogram is performed. Subeditor: Rody Lamar Attending Provider: Brinda Wright [facility] Reason for Poor Study: patient body habitus Summary 1. Complete two-dimensional, color flow and Doppler transthoracic echocardiogram is performed. 2. Left ventricular chamber dimension is normal. 3. Left ventricular systolic function is normal, estimated at 60-65. 4. The left ventricular diastolic function is grade I diastolic dysfunction. 5. E/e' 7 is not elevated. 6. The aortic valve is not well visualized. Cannot determine number of aortic valve leaflets. 7. There is mild aortic valve stenosis based on a peak velocity of 134 cm/s, mean gradient of 4 mmHg, and aortic valve area of 1.8 cm2. 8. No pulmonary hypertension, estimated pulmonary arterial systolic pressure is 17 mmHg. Left Ventricle E/e' 7 is not elevated. Left ventricular chamber dimension is normal. Left ventricular systolic function is normal, estimated at 60-65. The left ventricular diastolic function is grade I diastolic dysfunction. Right Ventricle Right ventricular chamber dimension is normal. Right ventricular systolic function is normal. Left Atria Left atrial chamber dimension is normal. Right Atria Right atrial chamber dimension is normal. Aortic Valve The aortic valve is not well visualized. Cannot determine number of aortic valve leaflets. There is mild aortic valve stenosis based on a peak velocity of 134 cm/s, mean gradient of 4 mmHg, and aortic valve area of 1.8 cm2. There is no aortic valve regurgitation. Pulmonic Valve There is no pulmonic regurgitation. Mitral Valve There is no mitral valve stenosis. There is no mitral valve regurgitation. Tricuspid Valve There is no tricuspid valve regurgitation. No pulmonary hypertension, estimated pulmonary arterial systolic pressure is 17 mmHg. Pericardium/Pleural There is no pericardial effusion. Inferior Vena Cava Normal inferior vena cava with >50% collapse upon inspiration consistent with normal right atrial pressure, 5 mmHg. Aorta The aortic root size at the sinus of Valsalva is normal. Left Ventricular Outflow Tract Name Value Normal LVOT 2D LVOT Diameter 1.8 cm LVOT Doppler LVOT Peak Velocity 99 cm/s LVOT Peak Gradient 3 mmHg LVOT Mean Gradient 2 mmHg LVOT VTI 18 cm LVOT VTI/AV VTI Ratio 0.7 LVOT Stroke Volume 46 ml LVOT CO 2.9 l/min LVOT CI 1.5 l/min/m2 Pulmonic Valve Name Value Normal RVOT Doppler RVOT Peak Velocity 90 cm/s RVOT Peak Gradient 3 mmHg PV Doppler PV Peak Velocity 127 cm/s PV Peak Gradient 6 mmHg Mitral Valve Name Value Normal MV Diastolic Function MV E Peak Velocity 88 cm/s MV A Peak Velocity 95 cm/s MV E/A 0.9 MV Decel Time (PW) 182 ms Tricuspid Valve Name Value Normal TV Regurgitation Doppler TR Peak Velocity 175 cm/s TR Peak Gradient 12 mmHg Estimated PAP/RSVP RA Pressure 5 mmHg <=5 PA Systolic Pressure 17 mmHg <36 RV Systolic Pressure 17 mmHg <36 Aorta Name Value Normal Ascending Aorta Ao Root Diameter (MM) 2.5 cm Ao Root Diam Index (MM) 1.3 cm/m2 Aortic Valve Name Value Normal AV Doppler AV Peak Velocity 134 cm/s AV Peak Gradient 6 mmHg AV Mean Gradient 4 mmHg AV VTI 26 cm AV Area (Cont Eq VTI) 1.8 cm2 >=3.0 AV Area (Cont Eq Rommel) 1.8 cm2 AV DI (Rommel) 0.74 AV Regurgitation 2D LVOT Area 2.5 cm2 Ventricles Name Value Normal LV Dimensions 2D/MM IVS Diastolic Thickness (2D) 0.6 cm 0.6-1.0 LVID Diastole (2D) 4.0 cm 4.2-5.8 LVIW Diastolic Thickness (2D) 1.3 cm 0.6-1.0 LVID Systole (2D) 2.7 cm 2.5-4.0 LVOT Diameter 1.8 cm LV Mass (2D Cubed) 117.17 g 88.00-224.00 LV Mass Index (2D Cubed) 59 g/m2 49-115 Relative Wall Thickness (2D) 0.65 <=0.42 LV Fractional Shortening/Ejection Fraction 2D/MM LV Fractional Shortening (2D) 32 % 25-43 LV EF (2D Teichholz) 61 % LV Diastolic Volume (4C MOD) 66 ml LV EF (4C MOD) 58 % LV Diastolic Volume (2C MOD) 58 ml LV EF (2C MOD) 62 % LV Diastolic Volume (BP MOD) 62 ml 62-150 LV Diastolic Volume Index (BP MOD) 31 ml/m2 34-74 LV Systolic Volume (BP MOD) 25 ml 21-61 LV Systolic Volume Index (BP MOD) 13 ml/m2 11-31 LV EF (BP MOD) 59 % 52-72 LV Diastolic Length (4C) 6.7 cm LV Systolic Length (4C) 5.5 cm LV Stroke Volume (4C MOD) 38 ml Atria Name Value Normal LA Dimensions LA Dimension (MM) 2.5 cm 3.0-4.0 LA Volume (4C A-L) 48 ml LA Volume (BP A-L) 38 ml RA Dimensions RA Systolic Major [place] Length (4C) 4.0 cm 2.1-2.7 RA Area (4C) 10.7 cm2 <=18.0 Report Signatures
--- OUTSIDE RECORDS SUMMARY | 2025-08-12 14:55 | XMS_ITS | Clinical Summary ---
Author Organization [facility] Address [address] [place] [address] Care Team Providers Care Concrete Mixer Operator Helper Name Role Phone Shawn Su MD Primary Care Provider [phone] Source Comments [facility],non-owned Affiliates and Associated Physician Practices is amultiple site organization consisting of ambulatory clinics and hospital sitesin [place], [place], [place] and [place]. This disclosure is being madepursuant to the Care Everywhere program and may not contain all information available regarding this patient. Last updated 18.[facility] Allergies No known active allergies Medications * [...] care, and heating? Not very hard 04/11/2023 [facility] [place] of Occupat ional Health - Occupational Stress [...] place to sleep or slept in a penitentiary (including now)? No 04/11/2023 Sex and Gender [...] - Risk 60-74 years 1-dose series) 2015 DEPRESSION SCREENING 10/31/2024 MEDICARE AWV CALENDAR YEAR 2024 COVID-19 VACCINE (1 - 2023-2 5 season) 2025 INFLUENZA VACCINE (#1) 2025 HEPATITIS B VACCINE Aged Out No [...] patient's age to complete this topic Insurance [facility] MANAGED MEDICARE ADV MEDICARE SUPPLEMENT PAYOR GENERIC Advance Directives * Full Code (Latest Code Status on File) Date Activated Date Inactivated Comments 04/11/2023 1:20 PM 04/19/2023 11:22 AM Care Teams Concrete Mixer Operator Helper Relationship Specialty Start Date End Date Shawn Su MD [facility] [place] [address] PCP - General Family Medicine 04/15/23
--- OUTSIDE RECORDS SUMMARY | 2025-08-12 14:55 | XMS_ITS | Encounter Summary ---
Author Organization [facility] Address [address] [place] [address] Care Team Providers Care Photography And Prints Curator Name Role Phone Shawn Heath MD Primary Care Provider [phone] Encounter Details Date Type Department Care Team (Late Contact Info) Description 04/01/2025 [employer] - Recycled [employer] Distributors Message Enc [facility] Multispecialty Care - [address], [address] [place] [phone] [place], [facility] Provider Results Social History Tobacco Use Types Packs/Day Years Used Date Smoking Tobacco: Never Smokeless Tobacco: Never Alcohol Use Standard Drinks/Week Comments Yes 18.3 (1 standard drink = 0.6 oz pure alcohol) PHQ-2 Answer Date Recorded Patient Health Questionnaire-2 Score 0 02/28/2025 Sex and Gender Information Value Date Recorded Sex Assigned at Not on file Legal Sex Male 7:37 AM GRINDER BRAKE LINING Gender Identity Not on file Sexual Orientation Not on file documented as of this encounter Plan of Treatment Upcoming Encounters Date Type Department Care Team (Late st Contact Info) Description 09/05/2025 11:00 AM GRINDER BRAKE LINING Office Visit [facility] - [place] [address] [place] [phone] Donta Higgins MD [address] [place] [address] 06/11/2026 10:20 AM CDT Office Visit [facility] Pul[facility]ology Specialty Clinic - [address] [place] [address] David Henson MD 3 [facility] [address] [place] [address] documented as of this encounter Visit Diagnoses Not on filedocumented in this encounter Care Teams Photography And Prints Curator Relationship Specialty Start Date End Date Shawn Heath MD [address] [place] [address] PCP - General FAMILY PRACTICE 12/09/21 documented as of this encounter
--- OUTSIDE RECORDS SUMMARY | 2025-08-12 14:55 | XMS_ITS | Clinical Summary ---
Author Organization [facility] Address [address] [place] [address] Care Team Providers Care Workforce Planner Name Role Phone Kentrell Harper DO Primary Care Provider Rubens Hernandez MD Unavailable [phone] Donta Higgins MD Unavailable [phone] David Henson MD Unavailable [phone] Zak Martinez Unavailable [phone] Allergies No known active allergies Medications gabapentin [...] 1 tablet (12.5 mg total) by mouth project geologist before breakfast 2 Active atorvastatin (LIPITOR) 20 [...] History Date Comments Hypertension Hyperlipidemia Thyroid disorder [place] teeth extracted History of vasectomy Muscular dystrophy [...] on file 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 Gender Identity Not on file Sexual Orientation [...] Risk Assessment 1955 Hepatitis C Screening 1955 DTaP/Tdap/Td Vaccine (1 - Tdap) 1966 Hepatitis B Screening 1973 Pneumococcal vaccine 65+ (1 of 1 - PCV) 2005 Abdominal Aortic Aneurysm (A AA) Screen 2020 Well Visit 65+ 2020 Covid-19 Vaccine (6 - 2024-2 6 season) 2025 07/12/2022, 02/03/2022, 08/06/2021, Additional history exists Influenza Vaccine (#1) 2025 07/12/2022, 2020 Zoster Vaccine Completed 01/17/2023, 11/12/2022 Insurance [facility] MEDICARE [facility]ANTAGE [facility] Address: [facility] [address] [place] [address] [facility] MCR SUPPLEMENT MICHELLE AVENDAÑO [id number] [facility] MEDICARE AD[facility]ANTAGE [facility] Address: [address] [address] [place] [address] [facility] MCR SUPPLEMENT MICHELLE AEVNDAÑO [id number] Care Teams Workforce Planner Relationship Specialty Start Date End Date Kentrell Harper DO PCP - General Internal Medicine 06/07/23 Rubens Hernandez MD [address] [place] [address] Orthopedic Surgery 06/07/23 Donta Higgins MD 3 [place] [address] Neurologist Neurology 06/07/23 David Henson MD [address] [address] Pulmonary Disease 06/07/23 Zak Martinez PA [address] [address] Physician Balloon Dipper Neurosurgery 06/16/23
--- OUTSIDE RECORDS SUMMARY | 2025-08-12 14:55 | XMS_ITS | Clinical Summary ---
Author Organization [facility] Address [address] [place] [address] Care Team Providers Care Marble Polisher Hand Name Role Phone Shawn Heath MD Primary Care Provider [phone] Allergies No known active allergies Medications atorvastatin 20 MG tablet Take 1 tablet (20 mg total) by mouth daily. 02/02/2022 Active candesartan 16 MG tablet Take 1 tablet (16 mg total) by mouth daily. 02/03/2022 Active levothyroxine 88 MCG tablet Take 1 tablet (88 mcg total) by mouth daily. 02/02/2022 Active hydroCHLOROthia zide 12.5 MG tablet Take 1 tablet (12.5 mg total) by mouth every morning. 02/02/2022 Active gabapentin (NEURONTIN) 400 MG capsule Take 1 capsule (400 mg total) by mouth daily. Active Multiple Vitamins-Minera ls (MULTIVITAMIN ADULT, MINERALS,) Tab Take by mouth daily. Active Active Problems Problem Noted Date Diagnosed Date FSHD (facioscapulohumeral muscular dystrophy) Adverse effect of other opioids, subsequent enco unter 04/19/2023 Alcohol abuse, uncomplicated 04/19/2023 Slow transit constipation 04/19/2023 Essential (primary) hypertension 04/19/2023 Hyperlipidemia, unspecified 04/19/2023 Mixed hyperlipidemia 04/19/2023 Hypothyroidism, unspecified 04/19/2023 Major depressive disorder, single episode, unspe cified 04/19/2023 Unilateral primary osteoarthritis, right hip Unsteadiness on feet 04/19/2023 Vitamin D deficiency, unspecified 04/19/2023 Weakness 04/19/2023 Facioscapulohumeral muscular dystrophy Rhabdomyolysis 04/19/2023 Other bursitis of hip, right hip 04/19/2023 Muscular dystrophy 04/12/2023 Debility 04/11/2023 Resolved Problems Problem Noted Date Diagnosed Date Resolved Date Trochanteric bursitis of right hip 04/12/2023 02/28/2025 Encounters Date Type Department Care Team Description 06/12/2025 10:00 AM CDT Office Visit [facility] Pulmonology Specialty Clinic - [address] [place] [address] David Henson MD Follow Up 06/12/2025 Travel from Last 3 Months Immunizations Immunization Administration Dates Next Due Shingrix 01/17/2023,11/12/2022 Family History Medical History Relation Comments Mental Health Daughter Relation Status Comments Daughter Social History Tobacco Use Types Packs/Day Years Used Date Smoking Tobacco: Never Smokeless Tobacco: Never Tobacco Cessation:Counseling Given: Yes Alcohol Use Standard Drinks/Week Comments Yes 18.3 (1 standard drink = 0.6 oz pure alcohol) PHQ-2 Answer Date Recorded Patient Health Questionnaire-2 Score 0 02/28/2025 Sex and Gender Information Value Date Recorded Sex Assigned at Not on file Legal Sex Male 7:37 AM SERVICING REP Gender Identity Not on file Sexual Orientation Not on file Last Filed Vital Signs Vital Sign Reading Time Taken Comments Blood Pressure 95/61 06/12/2025 10:02 AM CDT Pulse 90 06/12/2025 10:02 AM CDT Temperature 36.4 C (97.6 F) 02/28/2025 11:10 AM CDT Respiratory Rate 18 06/12/2025 10:02 AM CDT Oxygen Saturation 97% 06/12/2025 10:02 AM CDT RA Inhaled Oxygen Concentration - - Weight 76.2 kg (168 lb) 06/12/2025 10:02 AM CDT Height 190.5 cm (6' 3) 06/12/2025 10:02 AM CDT Body Mass Index 21 06/12/2025 10:02 AM CDT Plan of Treatment Upcoming Encounters Date Type Department Care Team (Late st Contact Info) Description 09/05/2025 11:00 AM SERVICING REP Office Visit [facility] Neurology [facility]ity [facility] - [place] [id number] [facility] [address] [place] [address] Donta Higgins MD 3 [place] [address] 06/11/2026 10:20 AM CDT Office Visit [facility] Pulmonology [facility]ty Clinic - [address] [place] [address] David Henson MD 3 [facility] [place] [address] [place] [address] Health Maintenance Due Date Last Done Comments Colorectal Cancer Screening Colonoscopy (10 Years) 1955 Hepatitis C 1973 DTaP, Tdap and Td Vaccines (1 - Tdap) 1974 Pneumococcal Vaccine: 50+ Years (1 of 1 - PCV) 2005 Annual Medicare Wellness Visit 2020 COVID-19 Vaccine (2024- season) 2025 02/03/2022, 08/06/2021, 01/15/2021, Additional history exists Influenza Adult (#1) 2025 RSV Immunization or 60+ Years (1 - 1-dose 75+ series) 2030 Zoster Vaccines Completed 01/17/2023, 11/12/2022 PHQ-2 (Physician [place]) Completed 02/28/2025 Meningococcal B Vaccine Aged Out No l onger eligible based on patient's age to complete this topic Meningococcal Vaccine Aged Out No ne jose eligible based on patient's age to complete this topic RSV Immunizations Under 20 Months Aged Out No longer eligible based on patient's age to complete this topic Insurance [facility] MEDICARE UMR Care Teams Marble Polisher Hand Relationship Specialty Start Date End Date Shwan Heath MD [address] [place] [address] PCP - General FAMILY PRACTICE 12/09/21
== END 2025-08-12 13:40 | disposition home or self-care (01) ==
LOC: ANHCARD 13:41
PROVIDERS: PCP Internal Medicine; Visit Provider Clinical Nurse Specialist
DX: R93.1 Abnormal findings on diagnostic imaging of heart and coronary circulation (principal); G47.33 Obstructive sleep apnea (adult) (pediatric)
CPT/HCPCS: 93306

== ENCOUNTER 2025-08-23 09:18 | Outpatient (CLI) | payer MEDICARE, SELFPAY ==
--- OUTSIDE RECORDS SUMMARY | 2025-08-23 09:30 | XMS_ITS | Clinical Summary ---
Author Organization [facility] Address [address] [place] [address] Care Team Providers Care Drying Room Operator Name Role Phone Shawn Su MD Primary Care Provider [phone] Source Comments [facility],non-owned Affiliates and Associated Physician Practices is amultiple site organization consisting of ambulatory clinics and hospital sitesin [place], [place], [place] and [place]. This disclosure is being madepursuant to the Care Everywhere program and may not contain all information available regarding this patient. Last updated 18.[facility] Allergies No known active allergies Medications * [...] care, and heating? Not very hard 04/11/[address] [facility] [place] of Occupat ional Health - Occupational Stress [...] place to sleep or slept in a custodial (including now)? No 04/11/2023 Sex and Gender [...] patient's age to complete this topic Insurance [facility] MANAGED MEDICARE ADV MEDICARE SUPPLEMENT PAYOR GENERIC Advance Directives * Full Code (Latest Code Status on File) Date Activated Date Inactivated Comments 04/11/2023 1:20 PM 04/19/2023 11:22 AM Care Teams Drying Room Operator Relationship Specialty Start Date End Date Shawn Su MD [facility] [place] [address] PCP - General Family Medicine 04/15/23
--- OUTSIDE RECORDS SUMMARY | 2025-08-23 09:31 | XMS_ITS | Encounter Summary ---
Author Organization [facility] Address [address] [place] [address] Care Team Providers Care Art Specialist Name Role Phone Shawn Heath MD Primary Care Provider [phone] Encounter Details Date Type Department Care Team (Late Contact Info) Description 04/01/2025 [place] Message Enc [facility] Multispecialty Care - [address], [address] [place] [phone] Nataliablue eye, [facility] Provider Results Social History Tobacco Use Types Packs/Day Years Used Date Smoking Tobacco: Never Smokeless Tobacco: Never Alcohol Use Standard Drinks/Week Comments Yes 18.3 (1 standard drink = 0.6 oz pure alcohol) PHQ-2 Answer Date Recorded Patient Health Questionnaire-2 Score 0 02/28/2025 Sex and Gender Information Value Date Recorded Sex Assigned at Not on file Legal Sex Male 7:37 AM DOOR OPERATOR Gender Identity Not on file Sexual Orientation Not on file documented as of this encounter Plan of Treatment Upcoming Encounters Date Type Department Care Team (Late st Contact Info) Description 09/05/2025 11:00 AM DOOR OPERATOR Office Visit [facility] Neurology Speciality Clinic - [place] [address] [place] [phone] Donta Higgins MD [address] [place] [address] 06/11/2026 10:20 AM CDT Office Visit [facility] - [address] [place] [address] David Henson MD 3 [facility] [address] [place] [address] documented as of this encounter Visit Diagnoses Not on filedocumented in this encounter Care Teams Art Specialist Relationship Specialty Start Date End Date Shawn Heath MD [address] [place] [address] PCP - General FAMILY PRACTICE 12/09/21 documented as of this encounter
--- OUTSIDE RECORDS SUMMARY | 2025-08-23 09:33 | XMS_ITS | Clinical Summary ---
Author Organization [facility] Address [address] [place] [address] Care Team Providers Care Dog Breeder Name Role Phone Kentrell Harper DO Primary Care Provider Rubens Hernandez MD Unavailable [phone] Donta Higgins MD Unavailable [phone] David Henson MD Unavailable [phone] Zak Martinez Unavailable [phone] Allergies No known active allergies Medications gabapentin [...] 1 tablet (12.5 mg total) by mouth machinery dismantler before breakfast 2 Active atorvastatin (LIPITOR) 20 [...] History Date Comments Hypertension Hyperlipidemia Thyroid disorder [place] teeth extracted History of vasectomy Muscular dystrophy [...] on file 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 Gender Identity Not on file Sexual Orientation [...] 2020 Zoster Vaccine Completed 01/17/2023, 11/12/2022 Insurance [facility] MEDICARE AD[facility]ANTAGE [facility] [place] Address: [facility] [address] [place] [address] [facility] MCR SUPPLEMENT MICHELLE AVENDAÑO [address] [facility] MEDICARE ADVANTAGE [facility] [place] MEDIC[facility] Address: [address] [address] [place] [address] [facility] MCR SUPPLEMENT MICHELLE AVENDAÑO [address] Care Teams Dog Breeder Relationship Specialty Start Date End Date Kentrell Harper DO PCP - General Internal Medicine 06/07/23 Rubens Hernandez MD [address] [place] [address] Orthopedic Surgery 06/07/23 Donta Higgins MD 3 [place] [address] Neurologist Neurology 06/07/23 David Henson MD [address] [address] Pulmonary Disease 06/07/23 Zak Martinez PA [address] [address] Physician Director Industrial Relations Neurosurgery 06/16/23
--- OUTSIDE RECORDS SUMMARY | 2025-08-23 09:33 | XMS_ITS | Data Portability ---
Author Organization [place] - [facility] [email or web address], Main Office Address [address] [place] [address] Care Team Providers Care Software Engineering Project Manager Name Role Phone ELKIN FARIAS Primary Care [...] this patient more the time spent in [id number] care. Addendum, 05/17/2023: Patient had his lumbar [...] Jadyn Acosta or Dr. Jadyn Bryant at [facility] or he could refer him to Dr. Epifanio Pulido at [facility]. he is going to do some research [...] in a dose pack [id number] [email or web address] [id number], [address], [place], [id number], 3 11:24:56 Patient TargetsNo targets recorded. Patient InstructionsNo instructions recorded. Reason for Referral None Reported. Results Created Date Observation Date Name Description Value Unit Range Abnormal Flag Note LastModifiedBy Organization Detail LastModifiedTime 08/10/2008/10/2021 PSA SCREE N PSA medicare screen 5.53 NG/mL 0.00-4 .00 high Not Available [facility] (Lab) [address] [place], [address], 08/10/2021 13:49:39 08/10/20 21 08/10/2021 TSH thyroid-stim ulating hormone 4.800 uIU/m L 0.465- 4.680 high Not Available [facility] (Lab) [address] [place], [address], 08/10/2021 13:49:37 08/10/2008/10/2021 T4 FREE free T4 1.22 NG/dL 0.78-2 .19 Not Available [facility] (Lab) [address] [place], [address], 08/10/2021 13:46:15 08/10/2008/10/2021 COMPR EHENS TANMAY METAB OLIC PANEL carbon dioxide 28 mmol/ L 22-30 Not Available [facility] (Lab) [address] [place], [address], 08/10/2021 13:19:24 08/10/20 21 08/10/2021 COMPR EHENS TANMAY METAB OLIC PANEL sodium 135 mmol/ L 137-14 5 low Not Available [facility] (Lab) [address] [place], [address], 08/10/2021 13:19:24 08/10/20 21 08/10/2021 COMPR EHENS TANMAY METAB OLIC PANEL potassium 4.6 mmol/ L 3.5-5. 1 Not Available [facility] (Lab) [address] [place], [address], 08/10/2021 13:19:24 08/10/20 21 08/10/2021 COMPR EHENS TANMAY METAB OLIC PANEL chloride 100 mmol/ L 98-107 Not Available [facility] (Lab) [address] [place], [address], 08/10/2021 13:19:24 08/10/20 21 08/10/2021 COMPR EHENS TANMAY METAB OLIC PANEL agap 11.6 mmol/ L 14-22 low Not Available [facility] (Lab) [address] [place], [address], 08/10/2021 13:19:24 08/10/20 21 08/10/2021 COMPR EHENS TANMAY METAB OLIC PANEL glucose 90 mg/dL 70-99 Not Available [facility] (Lab) [address] [place], [address], 08/10/2021 13:19:24 08/10/20 21 08/10/2021 COMPR EHENS TANMAY METAB OLIC PANEL BUN 20 mg/dL 8-19 high Not Available [facility] (Lab) [address] [place], [address], 08/10/2021 13:19:24 08/10/20 21 08/10/2021 COMPR EHENS TANMAY METAB OLIC PANEL creatinine 0.78 mg/dL 0.66-1 .25 Not Available [facility] (Lab) [address] [place], [address], 08/10/2021 13:19:24 08/10/20 21 08/10/2021 COMPR EHENS TANMAY METAB OLIC PANEL GFR >60 Refer ence Range : [place] ge GFR Healt hy Adult : >60 [...] lator can be locat ed on the [facility] websi te: https :[email or web address] [email or web address] reina/pr tanmaywhit camal s/kdo qi/gf r_cal culat or Not Available [facility] (Lab) [address] [place], [address], 08/10/2021 13:19:24 08/10/20 21 08/10/2021 COMPR EHENS TANMAY METAB OLIC PANEL alkaline phosphatase 52 U/L 38-126 Not Available [facility] (Lab) [address] [place], [address], 08/10/2021 13:19:24 08/10/20 21 08/10/2021 COMPR EHENS TANMAY METAB OLIC PANEL alanine aminotransfe rase 28 U/L 0-50 Not Available [facility] (Lab) [address] [place], [address], 08/10/2021 13:19:24 08/10/20 21 08/10/2021 COMPR EHENS TANMAY METAB OLIC PANEL aspartate aminotransfe rase 44 U/L 15-46 Not Available [facility] (Lab) [address] [place], [address], 08/10/2021 13:19:24 08/10/20 21 08/10/2021 COMPR EHENS TANMAY METAB OLIC PANEL bilirubin, total 0.80 mg/dL 0.20-1 .30 Not Available [facility] (Lab) [address] [place], [address], 08/10/2021 13:19:24 08/10/20 21 08/10/2021 COMPR EHENS TANMAY METAB OLIC PANEL calcium 9.3 mg/dL 8.4-10 .2 Not Available [facility] (Lab) [address] [place], [address], 08/10/2021 13:19:24 08/10/20 21 08/10/2021 COMPR EHENS TANMAY METAB OLIC PANEL total protein 7.2 g/dL 6.3-8. 2 Not Available [facility] (Lab) [address] [place], [address], 08/10/2021 13:19:24 08/10/20 21 08/10/2021 COMPR EHENS TANMAY METAB OLIC PANEL albumin 4.3 g/dL 3.0-4. 4 Not Available [facility] (Lab) [address] [place], [address], 08/10/2021 13:19:24 08/10/20 21 08/10/2021 COMPR EHENS TANMAY METAB OLIC PANEL globulin 2.9 g/dL 2.6-4. 2 Not Available [facility] (Lab) [address] [place], [address], 08/10/2021 13:19:24 08/10/20 21 08/10/2021 COMPR EHENS TANMAY METAB OLIC PANEL A/G ratio 1.5 ratio 1.0-2. 0 Not Available [facility] (Lab) [address] [place], [address], 08/10/2021 13:19:24 08/10/20 21 08/10/2021 LIPID PANEL LDL cholesterol, calculated 75 mg/dL [...] WILL NOT BE REPOR YANET. Not Available [facility] (Lab) [address] [place], [address], 08/10/2021 13:19:17 08/10/20 21 08/10/2021 LIPID PANEL cholesterol 158 mg/dL 140-19 9 NIH KEVIN NSUS RECOM MENDA TION FOR LUIZ STERO L: ADULT CHILD LOW RISK: <200 <170 BORDE RLINE : <200- 239 ----- HIGH RISK: >240 >200 Not Available [facility] (Lab) [address] [place], [address], 08/10/2021 13:19:17 08/10/20 21 08/10/2021 LIPID PANEL triglyceride s 64 mg/dL 0-150 NIH KEVIN NSUS REPOR T RECOM MENDA TION FOR TRIGL YCERI MARIA A: ADULT CHILD LOW RISK: <150 ----- BODER LINE: 150-1 99 ----- HIGH RISK: >200 ----- Not Available [facility] (Lab) [address] [place], [address], 08/10/2021 13:19:17 08/10/20 21 08/10/2021 LIPID PANEL HDL cholesterol 70 mg/dL 40- Not Available [facility] (Lab) [address] [place], [address], 08/10/2021 13:19:17 01/08/20 23 01/03/2023 PFT, compl ete No observ ation record ed. [email or web address] Not Available 2022 09:03:50 04/08/20 23 04/08/2023 CT, hip, w/o contr ast No observ ation record ed. [email or web address] [address], [place], [address], 04/11/2023 09:23:35 05/16/20 23 04/11/2023 MRI, hip, w/o contr ast No observ ation record ed. [email or web address] Not Available 2022 19:03:31 05/16/20 23 04/10/2023 XR, pelvi s No observ ation record ed. [email or web address] Not Available 2022 19:03:53 05/17/20 23 MRI, lumba r spine , w/o contr ast [facility] [address] [place] [address] Patien t Name: GAVIOTA ERNANDEZ Access ion #: [id number] Sex: M : 1954 9 3 Dictat ed By: Jacobo lam Attend ing Physic lisa: RUBENS BENITEZ Physic lisa: AIDA NATARAJAN Exam Date: 2022 [...] ral body height s are mainta ined. 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 No [...] 1 [facility] [address] [place] [address] [phone] Patien t Name: GAVIOTA ERNANDEZ Access ion #: [id number] Sex: M : 1954 9 3 Dictat ed By: Jacobo lam Attend ing Physic lisa: AIDA NATARAJAN Orderi ng Physic lisa: AIDA NATARAJAN Exam Date: [...] at 2022 13:05: 52 PM Page 2 [email or web address] [facility] (Imaging) [address] [place], [address], 05/17/2023 14:33:59 05/17/20 23 05/17/2023 MRI, lumba r spine , w/o contr ast No observ ation record ed. [email or web address] [facility] [address] [place], [address], 05/18/2023 11:28:57 08/26/20 23 08/26/2023 MRI, cervi elida spine , w/o contr ast No observ ation record ed. [email or web address] [facility] [address] [place], [address], 08/29/2023 12:31:12 09/05/20 24 08/31/2024 PFT, compl ete No observ ation record ed. [email or web address] Not Available 09/05 11:32:20 Result Notes Documentation Provider Name and Address Organization Details Recorded Time Mri, Lumbar Spine, W/o Contrast : [facility] [address] [place] [address] Patient Name: GAVIOTA SLAUGHTER Sex: M : 1955 Dictated By: Epifanio Vale Attending Physician: RUBENS LAY Ordering Physician: ROSANNE NATARAJAN Exam Date: 05/17/2023 11:48 AM Exam Name: MRI L SPINE WO Admitting Diagnosis(es): CLINICAL INFORMATION: Low back pain with right lower extremity radiculopathy. TECHNICAL INFORMATION: Multisequence multiplanar MRI images of the lumbar spine were obtained without contrast. COMPARISON: None. INTERPRETATION: Straightening of the normal lumbar lordosis. No significant spondylolisthesis. Vertebral body heights are maintained. Posterior elements are intact. No focal suspicious marrow signal abnormality. Visualized spinal cord and cauda equina are within normal limits. The conus medullaris is appropriate in signal at the T12-L1 level. Marked fatty atrophy in the lumbar paraspinal musculature. L1-L2: Disc desiccation. No significant spinal canal or neural foraminal stenosis. L2-L3: Disc desiccation. No significant spinal canal or neural foraminal stenosis L3-L4: Disc desiccation. Mild disc bulge mildly indenting the ventral aspect of the thecal sac and encroaching on the neural foramina bilaterally. Mild bilateral neural foraminal stenoses secondary to facet hypertrophy and encroachment of the neural foramina by the disc bulge. L4-L5: Disc desiccation with diffuse disc bulge and superimposed right foraminal disc protrusion. There is a mild degree of spinal canal stenosis and effacement of the right lateral recess. Moderate to severe right neural foraminal stenosis secondary to the right foraminal disc protrusion and concomitant facet hypertrophy. Mild to moderate left neural foraminal stenosis secondary to encroachment of the left neural foramen by the disc bulge and facet hypertrophy. Page [address] [address] Patient Name: GAVIOTA SLAUGHTER Sex: M : 1955 Dictated By: Epifanio Vale Attending Physician: ROSANNE NATARAJAN Ordering Physician: ROSANNE NATARAJAN Exam Date: 05/17/2023 11:48 AM Exam Name: MRI L SPINE WO Admitting Diagnosis(es): L5-S1: Disc desiccation. Severe disc space narrowing with prominent Modic type II endplate changes. Moderate to severe right neural foraminal stenosis secondary to facet hypertrophy and dorsal spurring. Mild to moderate left neural foraminal stenosis secondary to facet hypertrophy. IMPRESSION: 1. Degenerative disc disease and facet disease in the lumbar spine is detailed above, radius and the L4-L5 level, where there is disc bulge and right foraminal disc protrusion causing mild spinal canal stenosis, effacement of the right lateral recess, and moderate to severe right neural foraminal stenosis with possible impingement of the exiting right L4 nerve. 2. Moderate to severe right neural foraminal stenosis and [id number]-sn-megvrfud left neural foraminal stenosis at L5-S1. Prominent Modic type II endplate changes at L5-S1. 3. Marked fatty atrophy of the lumbar paraspinal musculature. Page 2 Cecile Burgess, RMA null, [place] [facility] 05/17/2023 14:33:59 Problems Name Problem SNOMED Code Status Onset Date Resolution Date Notes Provider Name and Address Organization Details Recorded Time Hyperchole sterolemia 31930775 Active 2020 Not Available [facility] 3 03:22:33 Hypertensi ve disorder 61024766 Active 2020 Not Available [facility] 3 03:22:33 Muscular dystrophy 07998220 Active 2020 Not Available [facility] 3 03:22:33 Change in skin lesion 749548148 Active 2021 Not Available [facility] 3 03:22:33 Essential hypertensi on 09408940 Active 2022 Not Available [facility] 3 03:22:33 Osteoarthr itis of right hip joint 7919812171448 07 Active 2022 Not Available [facility] 3 03:22:33 Pain of right hip joint 1671148442664 02 Active 2022 Not Available [facility] 3 03:22:33 Lumbar radiculopa thy 824977053 Active 2022 Not Available [facility] 3 03:22:33 Problem Notes None recorded. Procedures Surgical History Date Name Laterality Status Provider Name and Address Organization Details Recorded Time excision of basal cell carcinoma completed Not Available [facility] 12/29/2022 22:43:12 Tonsillectomy completed Not Available [facility] 12/29/2022 22:43:12 Imaging Results None recorded. Procedure [...] Heart rate Body temperature Body weight Systolic And Diastolic Provider Name and Address Organization Details Last Updated DateTime 1 21.8 kg/m2 182.88 cm 98 % 98 % 81 /min 97.4 [degF] 55548.3 7 g 122/80 mm[Hg] Not Available [facility] 3 22:43:44 Date Recorded Body height Body mass index (BMI) Body weight Provider Name and Address Organization Details Last Updated DateTime 05/11/2023 177.8 cm 22 kg/m2 84948.63 g ALIZA Chi [place] [facility] [employer] [facility] 05/11/2023 09:16:45 Date Recorded Body mass index (BMI) Body height Oxygen saturation Oxygen saturation in Arterial blood by Pulse oximetry Heart rate Body temperature Body weight Systolic And Diastolic Provider Name and Address Organization Details Last Updated DateTime 1 22.1 kg/m2 182.88 cm 98 % 98 % 80 /min 97 [degF] 65757.5 6 g 106/80 mm[Hg] Not Available [facility] 3 22:43:44 Social History Question Answer Notes LastModified by Organizat ion Details LastModified Time Tobacco Smoking Status Never Smoker Not Available [facility] 12/29/2022 22:42:52 Do You Have An Advance Directive? Yes [id number] Information not available 12/29/2022 Are You Blind Or Do You Have Difficulty Seeing? No MIGRATION.[id number] 0999 Information not available 12/29/2022 In The 14 Days Before Symptom Onset, Have You Had Close Contact With A Laboratory-confirm ed COVID-19 While That Case Was Ill? No MIGRATION.[id number] 6268 Information not available 12/29/2022 In The 14 Days Before Symptom Onset, Have You Had Close Contact With A Person Who Is Under Investigation For COVID-19 While That Person Was Ill? No MIGRATION.[id number] 6699 Information not available 12/29/2022 Are You Deaf Or Do You Have Serious Difficulty Hearing? No MIGRATION.[id number] 3289 Information not available 12/29/2022 What Type Of Diet Are You Following? VEGETARIAN MIGRATION.633032 7639 Information not available 12/29/2022 Do You Have A Medical Power Of Percher? Yes MIGRATION.549793 8988 Information not available 12/29/2022 What Was The Date Of Your Most Recent Tobacco Screening? 08/10/2021 MIGRATION.046668 6085 Information not available 12/29/2022 Do You Use Your Seat Belt Or Car Seat Routinely? Yes MIGRATION.793083 0206 Information not available 12/29/2022 Are You Passively Exposed To Smoke? No MIGRATION.360692 2058 Information not available 12/29/2022 Are There Any Smokers In Your House? No MIGRATION.163829 8047 Information not available 12/29/2022 Have You Recently Traveled Abroad? No MIGRATION.089557 1493 Information not available 12/29/2022 Do You Have Difficulty Walking Or Climbing Stairs? No MIGRATION.046968 4972 Information not available 12/29/2022 Are You Currently In School? No MIGRATION.102343 5501 Information not available 12/29/2022 Do You Have Any Dietary Restrictions? No MIGRATION.715036 8683 Information not available 12/29/2022 Sex: Unknown Functional Status Question Answer Note LastModified by Organizat ion Details LastModified Time What is your level of alcohol consumption? Occasional [email or web address] Information not available 05/11/2023 Do you have transportation difficulties? No MIGRATION.6500995 026 Information not available 12/29/2022 Are you able to walk independently without assistance or assistive devices? YESWOREST MIGRATION.5785792 026 Information not available 12/29/2022 Do you have difficulty doing errands alone? No MIGRATION.5333141 026 Information not available 12/29/2022 Are you able to care for yourself independently? Yes MIGRATION.5641587 026 Information not available 12/29/2022 Do you have difficulty dressing, bathing, grooming, or toileting? No MIGRATION.6739567 026 Information not available 12/29/2022 Mental Status Question Answer Note LastModified by Organizat ion Details LastModified Time Do you have difficulty concentrating, remembering or making decisions? No MIGRATION.[id number] 6 Information not available 12/29/2022 Family History Relationship Description Onset Age of this Age Resolved Age Notes LastModified by Organization Details LastModified Time Brother Muscular dystrophy [id number] Not available 12/29/2022 22:43:13 Mother Muscular dystrophy MIGRATION.519 [id number] Not available 12/29/2022 22:43:13 Maternal Uncle Muscular dystrophy MIGRATION.[id number] Not available 12/29/2022 22:43:13 Medical History Condition [...] INSOMNIA N HIGH CHOLESTEROL / HYPERLIPIDEMIA Y HYPERTHYROIDISM Y EYE PROBLEMS N EATING DISORDER N NEUROLOGICAL PROBLEMS N EDEMA N CHRONIC PAIN SYNDROME N HYPOTHYROIDISM N CONSTIPATION N CAROTID BLOCKAGE N BACK / NECK PROBLEMS N HAVE YOU BEEN HOSPITALIZED OR SEEN IN [facility] ER IN THE PAST YEAR ? N [...] DISORDER N ALZHEIMER'S DISEASE N PAIN N HERPES N DEMENTIA N SEIZURES/EPILEPSY N HEADACHES/MIGRAINES Y VASCULAR DISEASE N PACEMAKER N DIZZINESS N KIDNEY DISEASE N HEART DISEASE/HEART PROBLEMS N SCARLET FEVER N MULTIPLE SCLEROSIS N MENTAL DISORDER/ILLNESS N DEVELOPMENTAL OR BEHAVIORAL DISORDERS N CARDIAC ARRHYTHMIA N CANCER: SPECIFY N PNEUMONIA N Gall Stones N ATRIAL FIBRILLATION N PULMONARY EMBOLISM N AUTOIMMUNE DISEASE N Immunizations Vaccine Type Date Status Note Provider [facility] e and Address Organization Details Recorded Time Influenza, high-dose, quadrivalent, PF 08/10/2021 completed Not Available [facility] 3 03:22:33 Past Encounters Encounter ID Performer Location Encounter Start Date Encounter Closed Date Diagnosis/Indication Diagnosis SNOMED-CT Code Diagnosis ICD10 Code Diagnosis IMO Codes Diagnosis Note [id number] Shawn Su MD [facility] [place] [address] [place] [address] 02/03/2021 00:00:00 02/03/2021 22:16:39 [id number] Shawn Su MD [facility] [place] [address] [place] [address] 08/10/2021 00:00:00 08/10/2021 09:36:37 [id number] Rubens Lay MD [facility] [place] [address] [place] [address] 05/11/2023 08:44:35 05/16/2023 09:58:40 Pain of right hip joint 7040123071 46553 M25.551 Health Concerns Section Related Observation LastModified by Organization Detai ls LastModified Time None Recorded Concern Status LastModified by Organization Details LastModified Time None Recorded Advance Directives Directive Y: Payers Insurance Date Sequence Insurance Name Policy Number Policy Adams Covered Member ID Adams Member ID Guarantor Name 05/17/2023 1 [facility] (MEDICARE REPLACEMENT/ADV ANTAGE - HMO) [id number] Gaviota Slaughter [id number] Gaviota Slaughter 05/17/2023 2 [facility] - DOS PRIOR TO 2024 (PPO) Gaviota Slaughter [id number] Brenda Slaughter 05/11/2023 3 [place] Gaviota Slaughter [id number] Gaviota Slaughter 05/17/2023 [facility] - DOS PRIOR TO 2024 (PPO) Gaviota Slaughter [id number] Brenda Slaughter Notes Date Note Type Note Provider [...] hip pain after a trip to the [place] when he did much more walking than usual. Prior to this he would walk at most a mi at a time and he would have some difficulty with stairs recently. When he came back from [place] and 04/04/2023 he started noticing some mild symptoms around the lateral aspect of his right hip at in subtly on 04/08/2023 his pain became excruciating a deep stabbing pain in the lateral aspect of the right hip. Lately is noted some pain the anterior groin but this is mild. He went to [facility] complaining of severe pain in the lateral right hip and his right leg would not hold his weight. He was transferred to [facility] emergency room. There is no bed available so a waited in the emergency room and then was transferred to [facility] in [place] where he was admitted spent 1 week [...] in that area. Patient was discharged to [facility] in rehab and left on April 30 discharged home with home health care and physical therapy. He has used a walker since the went to the emergency. He has noticed some numbness lateral right thigh starting about 3 weeks ago and 2 weeks ago he noticed some numbness in the anterior yap on the right. He was started on methocarbamol gabapentin and duloxetine. He reports pain in the front of the hip side of the hip buttock lower back and thigh. Rubens Lay MD [address] [place] [address], [facility] [address], [place], [address], [place] [facility] [place] [facility] 05/17/2023 19:39:26
[2025-08-23 13:02] LABS: Hematocrit 49.9 % (42.0-52.0); Hemoglobin 16.0 g/dL (14.0-18.0); Immature Granulocyte Percent A 0.5 % (0-0.5); Lymphocytes Absolute Auto 1.69 K/mm3 (0.9-3.2); Mean Corpuscular HGB Conc 32.1 g/dl (32-36); Mean Corpuscular Hemoglobin 31.7 pg (26-34); Mean Corpuscular Volume 98.8 fl (80-100); Nucleated Red Blood Cells Absolute Auto 0.000 K/mm3 (0.0-0.012); Nucleated Red Blood Cells Perc 0.0 % (0.0-0.2); Platelet Count Result 200 k/mm3 (150-375); Red Blood Count 5.05 M/mm3 (4.6-6.20); White Blood Count 7.4 K/mm3 (4.5-10.0)
[2025-08-23 13:24] LABS: Alanine Aminotransferase 35 U/L (6-50); Albumin Level 4.7 g/dL (3.5-5.1); Alkaline Phosphatase 68 U/L (38-126); Anion Gap 11 mmol/L (4-12); Aspartate Amino Transferase 57 U/L (17-59); Bilirubin,Total 0.9 mg/dL (0.2-1.3); Blood Urea Nitrogen 20 mg/dL (9-20); Calcium 9.3 mg/dL (8.4-10.2); Carbon Dioxide 26 mmol/L (22-30); Chloride 99 mmol/L (98-107); Cholesterol 162 mg/dL (0-200); Estimated Glomerular Filt Rate > 60; Glucose 79 mg/dL (65-110); HDL Direct 68 mg/dL; Potassium 4.3 mmol/L (3.4-5.0); Sodium 136 mmol/L (137-145); Total Protein 7.8 g/dL (6.3-8.2); Triglycerides 94 mg/dL (<150)
[2025-08-23 13:26] LABS: Free T4 Free Thyroxine 1.53 ng/dL (0.78-2.19)
[2025-08-23 13:45] LABS: Ferritin 131.00 ng/mL (11.1-264)
[2025-08-23 14:02] LABS: Prostate Specific Antigen 3.4 ng/mL (< OR = 4.0); Thyroid Stimulating Hormone 3.880 uIU/mL (0.465-4.680)
[2025-08-23 14:17] LABS: Hemoglobin A1C 5.3 % (<5.7)
[2025-08-23 15:12] LABS: MALB Creatinine Ratio 37.7 mg/g (0-30)
[2025-08-23 15:50] LABS: Free T3 4.00 pg/mL (2.45-5.93)
== END 2025-08-23 09:19 | disposition home or self-care (01) ==
LOC: ANHGOSHLAB 09:19
PROVIDERS: PCP Internal Medicine; Visit Provider Clinical Nurse Specialist
DX: Z12.5 Encounter for screening for malignant neoplasm of prostate (principal); R73.01 Impaired fasting glucose; E03.9 Hypothyroidism, unspecified; E78.5 Hyperlipidemia, unspecified; I10 Essential (primary) hypertension; G71.00 Muscular dystrophy, unspecified; G47.33 Obstructive sleep apnea (adult) (pediatric)
CPT/HCPCS: 36415; 80053; 80061; 82043; 82728; 83036; 84153; 84439; 84443; 84481; 85025; G0103